=== PATIENT | female | born 1995 | race Caucasian/White ===

== ENCOUNTER 2024-02-21 17:09 | Inpatient (IN) ==
[2024-02-21] MEDS: NIFEdipine 10 MG CAP PO STA (17:33)
[2024-02-21] MEDS: LABETALOL HCL IV 5 MG/ML 20ML IV STA ×5 (17:51→23:22)
[2024-02-21 18:01] LABS: Hematocrit (blood only) 32.4 % (37.0-47.0); Hemoglobin 10.2 g/dl (12.0-16.0); Mean Corpuscular Hemoglobin 22.1 pg (25.0-34.0); Mean Corpuscular Hgb Conc 31.5 g/dL (32.0-36.0); Mean Corpuscular Volume 70.1 fL (80.0-100.0); Platelet Count 234 K/uL (130-400); RDW Coefficient of Variation 13.8 % (11.5-14.5); RDW Standard Deviation 34.2 fL (36.4-46.3); Red Blood Count 4.62 M/uL (4.20-5.40); White Blood Count 8.69 K/ul (4.8-10.8)
[2024-02-21 18:14] LABS: Alanine Aminotransferase 5 U/L (7-52); Albumin Globulin Ratio 1.2 (0.9-2); Albumin Level 3.2 gm/dl (3.4-5.0); Alkaline Phosphatase 125 U/L (34-104); Anion Gap 7 (3-11); Aspartate Aminotransferase 11 U/L (13-39); BUN Creatinine Ratio 13.2 (10-20); Bilirubin,Total 0.4 mg/dl (0.2-1.0); Blood Urea Nitrogen 7 mg/dl (6-23); Calcium 8.3 mg/dl (8.6-10.3); Carbon Dioxide 24 mmol/L (21-32); Chloride 104 mmol/L (98-107); Est GFR (African American) > 150.0 ml/min; Globulin 2.6 gm/dl (2.5-4.0); Glucose 81 mg/dl (70-99(Fasting)); Potassium 3.5 mmol/L (3.5-5.1); Sodium 135 mmol/L (136-145); Total Protein 5.8 gm/dl (6.0-8.3)
[2024-02-21 18:20] LABS: Creatinine Urine Random 128.7 mg/dl; Protein Creatinine Ratio Urine 0.3 (0-0.2); Total Protein Urine Random 34.1 mg/dl (0-11.9)
[2024-02-21] MEDS: MAGNESIUM SULFATE / WTR 40 GM/1,000 ML BAG IV SCH (18:26)
[2024-02-21] MEDS: MAG SULFATE 4GM BOLUS FROM BAG IV ONE (18:26)
[2024-02-21] MEDS: MAGNESIUM SULFATE 40GM / WTR 1,000 ML BAG IV ONE (18:36)
[2024-02-21] MEDS: LACTATED RINGER'S 1,000 ML IV SCH (18:37)
--- NOTE | 2024-02-21 20:56 | History & Physical Report ---
Date of Service February 21, 2024 Assessment & Plan (1) Preeclampsia: Plan: Preeclampsia diagnosis with severe range blood pressures and protein/creatinine ratio 0.3. Bloodwork normal. Gave 10mg PO procardia on arrival, followed by 20mg IV labetalol. Reviewed diagnosis and plans with patient - recommend admission, magnesium, and induction of labor. She is agreeable. Will plan for lazo bulb and pitocin. History of Present Illness Chief Complaint: elevated BP Primary Care Provider: NO PCP 28yo @ 37 10/30, was at office today for routine visit, elevated BPs at office. Was directed to L&D for further eval/workup. No symptoms - no headache, vision changes, RUQ pain. Allergies Allergy/AdvReac Type Severity Reaction Status Date / Time No Known Allergies Allergy Verified 02/21/24 15:27 Home Medications Medication Instructions Recorded Confirmed Type aspirin 81 mg chewable tablet 81 mg PO DAILY 11/07/23 02/21/24 History elderberry fruit PO 11/07/23 02/21/24 History 21-iron fu-folic acid 1 tab PO 11/07/23 02/21/24 History [ Complete] Patient History Medical History (Updated 02/21/24 @ 20:59 by Carine Sanders DO) History of PCOS Hypertension Varicella vaccination Surgical History (Updated 11/07/23 @ 13:28 by Sonya Shannon) S/P tonsillectomy and adenoidectomy Family History (Updated 11/07/23 @ 13:14 by Sonya Shannon) Aunt Breast cancer Grandmother (Maternal) Ovarian cancer Denies family history of Colorectal cancer Social History (Updated 11/07/23 @ 13:16 by Sonya Shannon) Smoking Status: Never smoker Do You Dip or Chew Tobacco: No; Hx Alcohol Use: No Hx Substance Use: No Preferred Language: Uzbek Supervisor Sewer Maintenance Required: No Beliefs That Will Affect Care: None marital status: Single marital status details: marko Unger (24) [phone] Current Living Situation: Significant Other Current Living Situation Comment: lives with fohortencia, 2 children, dog, cat-fob changing litter current occupational status: employed and student current occupation: [employer] & student Feels Safe at Home: Yes Safety Concerns: Feels Safe At This Time Assistive Devices: None Review of Systems All systems reviewed & are unremarkable except as noted in HPI & below Physical Exam Physical Exam: FHT Cat 1 [place] none SVE FT/th/high Constitutional: WD/WN, vitals as above Respiratory: normal respiratory effort, lungs clear to auscultation no respiratory distress Cardiovascular: Rate/Rhythm: regular rate and regular rhythm Gastrointestinal (Abdomen): Inspection/Auscultation: abdomen normal to inspection Percussion/Palpation: abdomen soft; abdomen nontender Gravid. No s/s chorio or abruption. Skin: no rashes, warm and dry Psychiatric: A+Ox3, euthymic affect Results & Data Vital Signs (Past 12 Hours) Vital Signs Temp Pulse Resp BP Pulse Ox 02/21/24 20:55 163/99 H 02/21/24 20:54 104 H 163/100 H 02/21/24 20:53 98 02/21/24 20:53 104 H 02/21/24 20:50 104 H 02/21/24 20:50 163/100 H 02/21/24 20:48 99 02/21/24 20:48 103 H 02/21/24 20:45 102 H 02/21/24 20:45 161/100 H 02/21/24 20:43 96 02/21/24 20:43 106 H 02/21/24 20:40 110 H 165/104 H 02/21/24 20:40 109 H 02/21/24 20:40 165/104 H 02/21/24 20:38 97 02/21/24 20:38 111 H 02/21/24 20:33 99 02/21/24 20:33 108 H 02/21/24 20:30 16 02/21/24 20:30 16 02/21/24 20:28 98 02/21/24 20:28 111 H 02/21/24 20:23 99 02/21/24 20:23 110 H 02/21/24 20:22 108 H 02/21/24 20:22 161/97 H 02/21/24 20:18 99 02/21/24 20:18 111 H 02/21/24 20:13 99 02/21/24 20:13 105 H 02/21/24 20:08 98 02/21/24 20:08 109 H 02/21/24 20:03 97 02/21/24 20:03 108 H 02/21/24 20:00 16 02/21/24 20:00 16 02/21/24 19:58 99 02/21/24 19:58 106 H 02/21/24 19:53 99 02/21/24 19:53 105 H 02/21/24 19:52 105 H 02/21/24 19:52 156/90 H 02/21/24 19:48 99 02/21/24 19:48 108 H 02/21/24 19:43 99 02/21/24 19:43 109 H 02/21/24 19:38 99 02/21/24 19:38 108 H 02/21/24 19:33 98 02/21/24 19:33 105 H 02/21/24 19:30 16 02/21/24 19:30 16 02/21/24 19:29 106 H 02/21/24 19:29 145/89 H 02/21/24 19:28 98 02/21/24 19:28 107 H 02/21/24 19:23 100 02/21/24 19:23 109 H 02/21/24 19:22 108 H 02/21/24 19:22 155/94 H 02/21/24 19:18 99 02/21/24 19:18 109 H 02/21/24 19:15 36.6 C 16 02/21/24 19:15 16 02/21/24 19:13 98 02/21/24 19:13 115 H 02/21/24 19:08 98 02/21/24 19:08 107 H 02/21/24 19:03 97 02/21/24 19:03 111 H 02/21/24 19:03 94 02/21/24 19:03 109 H 02/21/24 18:58 96 02/21/24 18:58 108 H 02/21/24 18:56 94 02/21/24 18:56 114 H 02/21/24 18:53 95 02/21/24 18:53 116 H 02/21/24 18:49 116 H 02/21/24 18:49 136/82 02/21/24 18:48 95 02/21/24 18:48 115 H 02/21/24 18:44 122 H 02/21/24 18:44 157/93 H 02/21/24 18:43 99 0430/24 18:43 127 H 02/21/24 18:39 116 H 02/21/24 18:39 142/79 H 02/21/24 18:38 97 02/21/24 18:38 117 H 02/21/24 18:34 120 H 02/21/24 18:34 147/82 H 02/21/24 18:33 98 02/21/24 18:33 122 H 02/21/24 18:29 125 H 02/21/24 18:29 163/92 H 02/21/24 18:28 98 02/21/24 18:28 131 H 02/21/24 18:24 122 H 02/21/24 18:24 162/76 H 02/21/24 18:23 96 02/21/24 18:23 119 H 02/21/24 18:19 121 H 02/21/24 18:19 145/90 H 02/21/24 18:18 97 02/21/24 18:18 120 H 02/21/24 18:14 118 H 02/21/24 18:14 144/88 H 02/21/24 18:13 97 02/21/24 18:13 118 H 02/21/24 18:10 117 H 02/21/24 18:10 139/89 02/21/24 18:08 97 02/21/24 18:08 119 H 02/21/24 18:06 37.0 C 22 02/21/24 18:04 112 H 157/94 H 02/21/24 18:03 115 H 98 02/21/24 17:59 111 H 170/97 H 02/21/24 17:51 114 H 203/123 H 02/21/24 17:49 114 H 203/123 H 02/21/24 17:45 109 H 198/119 H 02/21/24 17:38 114 H 215/131 H 02/21/24 17:28 104 H 189/125 H 02/21/24 17:17 102 H 189/116 H Coding Level of Care Code None Diagnoses Preeclampsia O14.90
[2024-02-21] MEDS: OXYTOCIN 30 UNITS/NSS 30 UNITS/500 ML BAG IV PRN (22:07)
[2024-02-21] MEDS: ACETAMINOPHEN 500 MG TAB PO PRN (22:27)
[2024-02-22] LABS: Alanine Aminotransferase 8 U/L (7-52); Albumin Globulin Ratio 1.2 (0.9-2); Albumin Level 3.1 gm/dl (3.4-5.0); Alkaline Phosphatase 121 U/L (34-104); Anion Gap 7 (3-11); Aspartate Aminotransferase 10 U/L (13-39); BUN Creatinine Ratio 11.1 (10-20); Bilirubin,Total 0.5 mg/dl (0.2-1.0); Blood Urea Nitrogen 5 mg/dl (6-23); Calcium 7.4 mg/dl (8.6-10.3); Carbon Dioxide 22 mmol/L (21-32); Chloride 103 mmol/L (98-107); Est GFR (African American) > 150.0 ml/min; Est GFR (Non-African American) 138.3 ml/min; Globulin 2.5 gm/dl (2.5-4.0); Glucose 98 mg/dl (70-99(Fasting)); Potassium 3.5 mmol/L (3.5-5.1); Sodium 132 mmol/L (136-145); Total Protein 5.6 gm/dl (6.0-8.3)
[2024-02-22 00:03] LABS: Hematocrit (blood only) 30.5 % (37.0-47.0); Hemoglobin 9.6 g/dl (12.0-16.0); Mean Corpuscular Hemoglobin 21.8 pg (25.0-34.0); Mean Corpuscular Hgb Conc 31.5 g/dL (32.0-36.0); Mean Corpuscular Volume 69.3 fL (80.0-100.0); Mean Platelet Volume 10.2 fL (9.4-12.4); Platelet Count 233 K/uL (130-400); RDW Coefficient of Variation 13.9 % (11.5-14.5); RDW Standard Deviation 34.2 fL (36.4-46.3); White Blood Count 10.35 K/ul (4.8-10.8)
[2024-02-22 00:34] LABS: Magnesium Therapeutic L&D Only 3.8 mg/dL (4.0-8.0)
[2024-02-22] MEDS: ONDANSETRON INJ 2 MG/ML 2 ML VIAL ONE (06:04)
[2024-02-22 06:07] LABS: Hematocrit (blood only) 33.3 % (37.0-47.0); Hemoglobin 10.6 g/dl (12.0-16.0); Mean Corpuscular Hemoglobin 22.1 pg (25.0-34.0); Mean Corpuscular Hgb Conc 31.8 g/dL (32.0-36.0); Mean Corpuscular Volume 69.4 fL (80.0-100.0); Platelet Count 224 K/uL (130-400); RDW Coefficient of Variation 13.8 % (11.5-14.5); White Blood Count 10.68 K/ul (4.8-10.8)
[2024-02-22] MEDS ORDERED: ONDANSETRON INJ 2 MG/ML 2 ML VIAL IV PRN (06:10)
[2024-02-22 06:24] LABS: Alanine Aminotransferase 8 U/L (7-52); Albumin Globulin Ratio 1.3 (0.9-2); Albumin Level 3.2 gm/dl (3.4-5.0); Alkaline Phosphatase 122 U/L (34-104); Anion Gap 9 (3-11); Aspartate Aminotransferase 12 U/L (13-39); Bilirubin,Total 0.6 mg/dl (0.2-1.0); Blood Urea Nitrogen 4 mg/dl (6-23); Calcium 7.2 mg/dl (8.6-10.3); Carbon Dioxide 21 mmol/L (21-32); Chloride 102 mmol/L (98-107); Creatinine Clr Calc Pharmacy 228.4 ml/min; Est GFR (African American) > 150.0 ml/min; Est GFR (Non-African American) 143.8 ml/min; Globulin 2.5 gm/dl (2.5-4.0); Glucose 92 mg/dl (70-99(Fasting)); Potassium 3.6 mmol/L (3.5-5.1); Sodium 132 mmol/L (136-145); Total Protein 5.7 gm/dl (6.0-8.3)
[2024-02-22] MEDS: LABETALOL HCL IV 5 MG/ML 20ML IV ONE (06:24)
[2024-02-22] MEDS: LABETALOL HCL IV 5 MG/ML 20ML IV STA (06:39)
[2024-02-22 06:54] LABS: Magnesium Therapeutic L&D Only 4.5 mg/dL (4.0-8.0)
--- NOTE | 2024-02-22 08:09 | Labor Progress Brief Note ---
Date of Service February 22, 2024 Subjective [place] balloon fell out. FHT Cat 1 [place] Q 3-5 SVE 4/50/-2 AROM performed, copious clear fluid. Continue pitocin - at 20 right now. Desires epidural. Assessment & Plan Admission and Anticipated Discharge Date Admission Date: February 22, 2024 Results & Data Vital Signs (Past 12 Hours) Vital Signs Temp Pulse Resp BP Pulse Ox 02/22/24 08:03 107 H 100 02/22/24 07:58 92 H 100 02/22/24 07:53 92 H 98 02/22/24 07:48 93 H 98 02/22/24 07:45 36.7 C 16 02/22/24 07:43 97 H 97 02/22/24 07:40 98 H 137/79 02/22/24 07:38 100 H 96 02/22/24 07:33 98 H 97 02/22/24 07:28 100 H 97 02/22/24 07:23 102 H 98 02/22/24 07:18 96 H 96 02/22/24 07:13 97 H 99 02/22/24 07:09 93 H 155/86 H 02/22/24 07:08 98 02/22/24 07:08 97 H 02/22/24 07:08 94 H 164/87 H 02/22/24 07:03 98 02/22/24 07:03 100 H 02/22/24 07:03 95 H 157/83 H 02/22/24 06:59 88 147/83 H 02/22/24 06:58 95 H 94 02/22/24 06:55 90 149/87 H 02/22/24 06:53 92 H 99 02/22/24 06:48 102 H 142/88 H 98 02/22/24 06:43 92 H 142/87 H 96 02/22/24 06:38 93 H 151/84 H 02/22/24 06:38 98 02/22/24 06:38 93 H 02/22/24 06:38 96 H 156/92 H 02/22/24 06:33 93 H 151/84 H 97 02/22/24 06:30 16 02/22/24 06:30 16 02/22/24 06:28 94 H 98 02/22/24 06:23 100 H 98 02/22/24 06:18 95 H 96 02/22/24 06:16 96 H 160/87 H 02/22/24 06:13 100 H 95 02/22/24 06:10 98 H 164/101 H 02/22/24 06:08 100 H 99 02/22/24 06:03 101 H 99 02/22/24 06:00 18 02/22/24 06:00 18 02/22/24 06:00 18 02/22/24 06:00 18 02/22/24 05:58 101 H 99 02/22/24 05:53 107 H 98 02/22/24 05:48 103 H 100 02/22/24 05:43 92 H 95 02/22/24 05:39 92 H 142/85 H 02/22/24 05:38 92 H 95 02/22/24 05:33 95 H 95 02/22/24 05:30 18 02/22/24 05:30 36.5 C 18 02/22/24 05:28 94 H 96 02/22/24 05:23 91 H 95 02/22/24 05:18 93 H 95 02/22/24 05:13 92 H 95 02/22/24 05:10 95 H 155/87 H 02/22/24 05:08 94 H 97 02/22/24 05:03 96 H 98 02/22/24 05:00 18 02/22/24 05:00 16 02/22/24 05:00 16 02/22/24 05:00 16 02/22/24 05:00 16 02/22/24 04:58 95 H 97 02/22/24 04:53 95 H 97 02/22/24 04:48 102 H 97 02/22/24 04:44 93 H 145/78 H 02/22/24 04:43 98 H 97 02/22/24 04:39 105 H 178/92 H 02/22/24 04:38 102 H 98 02/22/24 04:33 107 H 99 02/22/24 04:28 108 H 99 02/22/24 04:23 102 H 100 02/22/24 04:18 99 02/22/24 04:18 101 H 02/22/24 04:18 100 H 151/87 H 02/22/24 04:16 102 H 179/106 H 02/22/24 04:13 93 H 98 02/22/24 04:09 88 165/85 H 02/22/24 04:08 89 98 02/22/24 04:03 90 96 02/22/24 04:00 18 02/22/24 03:58 93 H 98 02/22/24 03:53 91 H 96 02/22/24 03:48 96 H 95 02/22/24 03:43 90 94 02/22/24 03:39 86 159/80 H 02/22/24 03:38 89 98 02/22/24 03:33 96 H 95 02/22/24 03:30 16 02/22/24 03:30 16 02/22/24 03:29 88 89 L 02/22/24 03:28 95 H 95 02/22/24 03:23 91 H 95 02/22/24 03:18 91 H 99 02/22/24 03:13 90 96 02/22/24 03:09 100 H 149/84 H 02/22/24 03:08 95 H 95 02/22/24 03:03 95 H 94 02/22/24 03:00 18 02/22/24 03:00 18 02/22/24 03:00 18 02/22/24 02:58 92 H 96 02/22/24 02:53 93 H 96 02/22/24 02:48 91 H 96 02/22/24 02:43 94 H 95 02/22/24 02:38 96 H 98 02/22/24 02:37 93 H 156/88 H 02/22/24 02:33 98 H 99 02/22/24 02:30 18 02/22/24 02:30 18 02/22/24 02:29 102 H 163/90 H 02/22/24 02:28 98 H 98 02/22/24 02:23 96 H 99 02/22/24 02:18 98 H 96 02/22/24 02:13 96 H 97 02/22/24 02:08 98 H 98 02/22/24 02:03 99 H 99 02/22/24 02:00 18 02/22/24 02:00 18 02/22/24 02:00 18 02/22/24 02:00 18 02/22/24 01:59 98 H 153/79 H 02/22/24 01:58 96 H 97 02/22/24 01:53 92 H 94 05/01/24 01:48 92 H 94 02/22/24 01:43 93 H 96 02/22/24 01:38 93 H 99 02/22/24 01:33 97 H 99 02/22/24 01:30 18 02/22/24 01:30 18 02/22/24 01:28 105 H 155/93 H 99 02/22/24 01:23 97 H 94 02/22/24 01:18 95 H 95 02/22/24 01:13 99 H 99 02/22/24 01:08 94 H 100 02/22/24 01:03 101 H 94 02/22/24 01:00 18 02/22/24 01:00 18 02/22/24 01:00 02/22/24 00:58 97 02/22/24 00:58 89 02/22/24 00:58 88 147/80 H 02/22/24 00:55 92 H 92 02/22/24 00:53 93 H 93 02/22/24 00:48 94 H 99 02/22/24 00:46 92 H 91 02/22/24 00:43 93 H 94 02/22/24 00:38 97 H 96 02/22/24 00:33 95 H 96 02/22/24 00:30 18 02/22/24 00:30 18 02/22/24 00:29 90 144/85 H 02/22/24 00:28 94 H 98 02/22/24 00:23 98 H 99 02/22/24 00:18 104 H 94 02/22/24 00:13 94 H 95 02/22/24 00:08 94 H 95 02/22/24 00:03 93 H 96 02/22/24 00:00 02/22/24 00:00 16 02/21/24 23:58 97 02/21/24 23:58 94 H 02/21/24 23:56 98 H 02/21/24 23:56 149/87 H 02/21/24 23:53 96 02/21/24 23:53 93 H 02/21/24 23:52 92 02/21/24 23:52 99 H 02/21/24 23:48 97 02/21/24 23:48 100 H 02/21/24 23:48 156/90 H 02/21/24 23:43 98 02/21/24 23:43 90 02/21/24 23:39 94 H 02/21/24 23:39 138/84 02/21/24 23:38 98 02/21/24 23:38 93 H 02/21/24 23:37 93 H 149/87 H 02/21/24 23:33 97 02/21/24 23:33 101 H 02/21/24 23:30 16 02/21/24 23:30 16 02/21/24 23:28 98 02/21/24 23:28 97 H 02/21/24 23:27 99 H 02/21/24 23:27 153/91 H 02/21/24 23:23 98 02/21/24 23:23 99 H 02/21/24 23:22 95 H 164/103 H 02/21/24 23:22 96 H 02/21/24 23:22 161/97 H 02/21/24 23:18 96 02/21/24 23:18 95 H 02/21/24 23:17 100 H 02/21/24 23:17 164/103 H 02/21/24 23:13 97 02/21/24 23:13 99 H 02/21/24 23:08 96 02/21/24 23:08 102 H 02/21/24 23:08 161/98 H 02/21/24 23:03 98 02/21/24 23:03 93 H 02/21/24 23:00 16 02/21/24 23:00 16 02/21/24 23:00 36.7 C 16 02/21/24 22:58 96 02/21/24 22:58 93 H 02/21/24 22:53 96 02/21/24 22:53 97 H 02/21/24 22:48 99 02/21/24 22:48 95 H 02/21/24 22:43 96 02/21/24 22:43 95 H 02/21/24 22:38 96 02/21/24 22:38 102 H 02/21/24 22:38 158/95 H 02/21/24 22:33 99 02/21/24 22:33 98 H 02/21/24 22:30 16 02/21/24 22:30 16 02/21/24 22:28 98 02/21/24 22:28 102 H 02/21/24 22:23 98 02/21/24 22:23 99 H 02/21/24 22:18 99 02/21/24 22:18 102 H 02/21/24 22:13 99 02/21/24 22:13 107 H 02/21/24 22:08 99 02/21/24 22:08 101 H 02/21/24 22:08 155/93 H 02/21/24 22:03 97 02/21/24 22:03 99 H 02/21/24 22:00 16 02/21/24 22:00 16 02/21/24 21:58 99 02/21/24 21:58 99 H 02/21/24 21:53 98 02/21/24 21:53 101 H 02/21/24 21:48 97 02/21/24 21:48 96 H 02/21/24 21:43 98 02/21/24 21:43 98 H 02/21/24 21:38 98 02/21/24 21:38 99 H 02/21/24 21:35 99 H 02/21/24 21:35 142/91 H 02/21/24 21:33 98 02/21/24 21:33 99 H 02/21/24 21:31 96 H 02/21/24 21:31 144/92 H 02/21/24 21:30 16 02/21/24 21:30 16 02/21/24 21:28 97 02/21/24 21:28 101 H 02/21/24 21:25 97 H 02/21/24 21:25 143/92 H 02/21/24 21:23 99 02/21/24 21:23 101 H 02/21/24 21:20 99 H 02/21/24 21:20 139/83 02/21/24 21:18 97 02/21/24 21:18 95 H 02/21/24 21:15 94 02/21/24 21:15 97 H 02/21/24 21:15 139/87 02/21/24 21:14 99 H 155/93 H 02/21/24 21:13 98 02/21/24 21:13 83 02/21/24 21:10 102 H 02/21/24 21:10 158/93 H 02/21/24 21:08 97 02/21/24 21:08 104 H 02/21/24 21:05 100 H 02/21/24 21:05 147/85 H 02/21/24 21:03 98 02/21/24 21:03 105 H 02/21/24 21:02 16 02/21/24 21:01 107 H 02/21/24 21:01 150/90 H 02/21/24 21:00 16 02/21/24 21:00 16 02/21/24 21:00 94 02/21/24 21:00 106 H 02/21/24 20:59 104 H 163/99 H 02/21/24 20:58 96 02/21/24 20:58 103 H 02/21/24 20:55 104 H 02/21/24 20:55 163/99 H 02/21/24 20:54 104 H 163/100 H 02/21/24 20:53 98 02/21/24 20:53 104 H 02/21/24 20:50 104 H 02/21/24 20:50 163/100 H 02/21/24 20:48 99 02/21/24 20:48 103 H 02/21/24 20:45 102 H 02/21/24 20:45 161/100 H 02/21/24 20:43 96 02/21/24 20:43 106 H 02/21/24 20:40 110 H 165/104 H 02/21/24 20:40 109 H 02/21/24 20:40 165/104 H 02/21/24 20:38 97 02/21/24 20:38 111 H 02/21/24 20:33 99 02/21/24 20:33 108 H 02/21/24 20:30 16 02/21/24 20:30 16 02/21/24 20:28 98 02/21/24 20:28 111 H 02/21/24 20:23 99 02/21/24 20:23 110 H 02/21/24 20:22 108 H 02/21/24 20:22 161/97 H 02/21/24 20:18 99 02/21/24 20:18 111 H 02/21/24 20:13 99 02/21/24 20:13 105 H 02/21/24 20:08 98 02/21/24 20:08 109 H Coding Level of Care Code None
[2024-02-22] MEDS ORDERED: fentaNYL citrate PF 100 MCG/2 ML VIAL EPI PRN (08:21)
[2024-02-22] MEDS ORDERED: LIDOCAINE 2% MPF LOCAL 5 ML VIAL EPI PRN (08:21)
[2024-02-22] MEDS ORDERED: BUPIVACAINE 0.25% PF 30 ML VIAL EPI PRN (08:21)
[2024-02-22] MEDS ORDERED: SODIUM CHLORIDE 0.9% PF INJ 10 ML VIAL EPI PRN (08:21)
[2024-02-22] MEDS ORDERED: NALOXONE HCL 0.4 MG/1 ML VIAL/CARP IV PRN ×2 (08:21→22:40)
[2024-02-22] MEDS ORDERED: ePHEDrine sulfate 50 MG/ML AMP IV PRN ×2 (08:21→22:40)
[2024-02-22] MEDS ORDERED: NALOXONE HCL 1 MG in SODIUM CHLORIDE 0.9% 1,000 ML IV PRN ×2 (08:21→22:40)
[2024-02-22] MEDS ORDERED: NALBUPHINE HCL 5 MG in SYRINGE 0 ML IV PRN ×2 (08:21→22:40)
[2024-02-22] MEDS ORDERED: ROPIVACAINE 0.5% PF 5 MG/ML 20 ML VIAL EPI PRN (08:21)
[2024-02-22] MEDS ORDERED: diphenhydrAMINE 50 MG/ML VIAL IV PRN ×2 (08:21→22:40)
--- NOTE | 2024-02-22 08:21 | Anesthesiology Consultation ---
Date of Service February 22, 2024 Assessment & Plan Chart Review Chart Review: Acceptable Risk for Labor Epidural Consults Requested none History Height/Weight Height: 5 ft Weight: 101.437 kg Allergies Allergy/AdvReac Type Severity Reaction Status Date / Time No Known Allergies Allergy Verified 02/21/24 15:27 Medications Home Medications Medication Instructions Recorded Confirmed Last Taken aspirin 81 mg chewable tablet 81 mg PO DAILY 11/07/23 02/21/24 Unknown elderberry fruit PO 11/07/23 02/21/24 Unknown 21-iron fu-folic acid 1 tab PO 11/07/23 02/21/24 02/20/24 [ Complete] Active Medications Generic Name Dose Route Start Last Admin Trade Name Freq PRN Reason Stop Dose Admin Acetaminophen 1,000 mg 02/21/24 21:45 02/22/24 05:55 Acetaminophen 500 Mg Tab PO 03/22/24 21:44 1,000 mg Q8H PRN Administration Pain Magnesium Sulfate 40 gm in 1,000 mls @ 50 mls/hr 02/21/24 18:30 02/22/24 07:05 Magnesium Sulfate / Wtr IV 03/22/24 18:29 50 mls/hr .Q20H [place] Infusion Lactated Ringer's 1,000 mls @ 75 mls/hr 02/21/24 18:30 02/22/24 07:05 Lr IV 03/22/24 18:29 75 mls/hr .[id number] [place] Infusion Oxytocin 30 units in 500 mls @ 20 mls/hr 02/21/24 18:23 02/22/24 07:37 Pitocin 30 Units/Nss IV 02/23/24 18:22 1.2 units/hr .Q24H PRN 20 mls/hr Labor Induction/Augmentation Titration Protocol 1.2 UNITS/HR Past Medical History Medical History (Updated 02/21/24 @ 20:59 by Carine Sanders DO) History of PCOS Hypertension Varicella vaccination Past Family History Family History (Updated 11/07/23 @ 13:14 by Sonya Shannon) Aunt Breast cancer Grandmother (Maternal) Ovarian cancer Denies family history of Colorectal cancer Past Surgical History Surgical History (Updated 11/07/23 @ 13:28 by Sonya Shannon) S/P tonsillectomy and adenoidectomy Social History Smoking Status: Never smoker Do You Dip or Chew Tobacco: No Hx Alcohol Use: No Hx Substance Use: No Physical Exam Vital Signs Last Vital Signs Temp 36.7 C 02/22/24 07:45 Pulse 98 H 02/22/24 08:18 Resp 16 02/22/24 07:45 BP 153/87 H 02/22/24 08:11 Pulse Ox 99 02/22/24 08:18 Constitutional WD/WN, vitals as above Respiratory normal respiratory effort, lungs clear to auscultation no respiratory distress Cardiovascular Rate/Rhythm: regular rate and regular rhythm Gastrointestinal (Abdomen) Inspection/Auscultation: abdomen normal to inspection Percussion/Palpation: abdomen soft; abdomen nontender Skin no rashes, warm and dry Psychiatric A+Ox3, euthymic affect Testing Laboratory Results 02/22/24 05:52 02/22/24 05:52 Blood Type B Positive 02/21/24 17:42 Antibody Screen NEGATIVE 02/21/24 17:42
[2024-02-22] MEDS: LIDOCAINE 2%/EPINEPHRINE 1:200,000 20 ML PF ONE (08:38)
[2024-02-22] MEDS: fentANYL 2 MCG/ML BUPIVacaine 0.125%-NSS 100ML BAG EPI PRN (08:39)
--- NOTE | 2024-02-22 08:48 | Communication Note ---
Date of Service: February 22, 2024 pt with anesth and received epidural. pit at 20 toco not able to read fhts categ 1 will c/w pit, monitor bps. fhts categ 1. pt aware i am taking over care.
--- NOTE | 2024-02-22 12:23 | Labor Progress Brief Note ---
Date of Service February 22, 2024 Subjective Review of Systems comfortable with epidural. no cp or sob, no lewis. Assessment & Plan (1) Preeclampsia: (2) Encounter for induction of labor: Plan given pit at 30 and no significant progress, will plan to 1/2 pit for 30min at 15 and then increase per orders. fhts categ 1. Admission and Anticipated Discharge Date Admission Date: February 22, 2024 Physical Exam Constitutional: WD/WN, vitals as above Genitourinary: Manual OB Exam: + cervical dilation (5), + cervical effacement 80% and + station -2 OB Exam Monitor Tracing: + external FHT monitor used, + external uterine monitor used (q2 pit at 30), + category I and + normal FHT variability no pressure of cephalic on cx. Results & Data Vital Signs (Past 12 Hours) Vital Signs Temp Pulse Resp BP Pulse Ox 02/22/24 12:18 90 98 02/22/24 12:13 92 H 99 02/22/24 12:09 92 H 116/72 02/22/24 12:08 89 97 02/22/24 12:03 92 H 99 02/22/24 12:00 16 02/22/24 12:00 98.1 F 02/22/24 11:59 86 115/69 02/22/24 11:58 86 97 02/22/24 11:53 89 98 02/22/24 11:49 85 114/72 02/22/24 11:48 84 99 02/22/24 11:43 89 97 02/22/24 11:38 89 98/56 L 99 02/22/24 11:33 85 94 02/22/24 11:28 96 02/22/24 11:28 86 02/22/24 11:28 80 103/57 L 02/22/24 11:23 94 02/22/24 11:23 80 02/22/24 11:23 83 92 02/22/24 11:20 79 100/59 L 02/22/24 11:18 81 93 02/22/24 11:14 83 92 02/22/24 11:13 78 92 02/22/24 11:08 82 107/58 L 96 02/22/24 11:03 85 97 02/22/24 11:00 16 02/22/24 11:00 73 104/58 L 02/22/24 10:58 96 05/01/24 10:58 57 L 02/22/24 10:58 64 99/54 L 02/22/24 10:56 56 L 92/53 L 02/22/24 10:53 95 H 98 02/22/24 10:48 98 H 98 02/22/24 10:43 100 H 95 02/22/24 10:38 95 H 99 02/22/24 10:33 93 H 99 02/22/24 10:32 96 H 141/83 H 02/22/24 10:28 94 H 96 02/22/24 10:23 96 H 98 02/22/24 10:18 94 H 96 02/22/24 10:13 97 H 96 02/22/24 10:08 91 H 99 02/22/24 10:03 96 H 97 02/22/24 10:02 95 H 142/85 H 02/22/24 10:00 16 02/22/24 10:00 97.9 F 02/22/24 09:58 92 H 94 02/22/24 09:53 93 H 94 02/22/24 09:51 90 120/72 02/22/24 09:48 93 H 94 02/22/24 09:43 94 H 93 02/22/24 09:41 90 135/77 02/22/24 09:38 94 H 96 02/22/24 09:33 92 H 94 02/22/24 09:31 93 H 139/79 02/22/24 09:28 99 H 97 02/22/24 09:23 92 H 96 02/22/24 09:18 94 H 98 02/22/24 09:16 97 H 139/75 02/22/24 09:13 99 H 95 02/22/24 09:11 93 H 135/78 02/22/24 09:08 90 95 02/22/24 09:06 95 H 128/77 02/22/24 09:03 95 H 95 02/22/24 09:01 94 H 138/85 02/22/24 08:58 97 H 98 02/22/24 08:57 99 H 144/88 H 02/22/24 08:53 98 H 98 02/22/24 08:51 99 H 154/86 H 02/22/24 08:48 98 H 99 02/22/24 08:45 104 H 152/87 H 02/22/24 08:43 97 02/22/24 08:43 101 H 02/22/24 08:43 99 H 153/87 H 02/22/24 08:41 101 H 153/88 H 02/22/24 08:39 100 H 169/97 H 02/22/24 08:38 98 02/22/24 08:38 105 H 02/22/24 08:38 100 H 179/101 H 02/22/24 08:33 103 H 99 02/22/24 08:28 102 H 100 02/22/24 08:23 103 H 100 02/22/24 08:18 98 H 99 02/22/24 08:13 97 H 99 02/22/24 08:11 97 H 153/87 H 02/22/24 08:08 103 H 100 02/22/24 08:03 107 H 100 02/22/24 07:58 92 H 100 02/22/24 07:53 92 H 98 02/22/24 07:48 93 H 98 02/22/24 07:45 98.1 F 16 02/22/24 07:43 97 H 97 02/22/24 07:40 98 H 137/79 02/22/24 07:38 100 H 96 02/22/24 07:33 98 H 97 02/22/24 07:28 100 H 97 02/22/24 07:23 102 H 98 02/22/24 07:18 96 H 96 02/22/24 07:13 97 H 99 02/22/24 07:09 93 H 155/86 H 02/22/24 07:08 98 02/22/24 07:08 97 H 02/22/24 07:08 94 H 164/87 H 02/22/24 07:03 98 02/22/24 07:03 100 H 02/22/24 07:03 95 H 157/83 H 02/22/24 07:00 16 02/22/24 06:59 88 147/83 H 02/22/24 06:58 95 H 94 02/22/24 06:55 90 149/87 H 02/22/24 06:53 92 H 99 02/22/24 06:48 102 H 142/88 H 98 02/22/24 06:43 92 H 142/87 H 96 02/22/24 06:38 93 H 151/84 H 02/22/24 06:38 98 02/22/24 06:38 93 H 05 06:38 96 H 156/92 H 02/22/24 06:33 93 H 151/84 H 97 02/22/24 06:30 16 02/22/24 06:30 16 02/22/24 06:28 94 H 98 02/22/24 06:23 100 H 98 02/22/24 06:18 95 H 96 02/22/24 06:16 96 H 160/87 H 02/22/24 06:13 100 H 95 02/22/24 06:10 98 H 164/101 H 02/22/24 06:08 100 H 99 02/22/24 06:03 101 H 99 02/22/24 06:00 18 02/22/24 06:00 18 02/22/24 06:00 18 02/22/24 06:00 18 02/22/24 05:58 101 H 99 02/22/24 05:53 107 H 98 02/22/24 05:48 103 H 100 02/22/24 05:43 92 H 95 02/22/24 05:39 92 H 142/85 H 02/22/24 05:38 92 H 95 02/22/24 05:33 95 H 95 02/22/24 05:30 18 02/22/24 05:30 97.7 F 18 02/22/24 05:28 94 H 96 02/22/24 05:23 91 H 95 02/22/24 05:18 93 H 95 02/22/24 05:13 92 H 95 02/22/24 05:10 95 H 155/87 H 02/22/24 05:08 94 H 97 02/22/24 05:03 96 H 98 02/22/24 05:00 18 02/22/24 05:00 16 02/22/24 05:00 16 02/22/24 05:00 16 02/22/24 05:00 16 02/22/24 04:58 95 H 97 02/22/24 04:53 95 H 97 02/22/24 04:48 102 H 97 02/22/24 04:44 93 H 145/78 H 02/22/24 04:43 98 H 97 02/22/24 04:39 105 H 178/92 H 05/01/24 04:38 102 H 98 02/22/24 04:33 107 H 99 02/22/24 04:28 108 H 99 02/22/24 04:23 102 H 100 02/22/24 04:18 99 02/22/24 04:18 101 H 02/22/24 04:18 100 H 151/87 H 02/22/24 04:16 102 H 179/106 H 02/22/24 04:13 93 H 98 02/22/24 04:09 88 165/85 H 02/22/24 04:08 89 98 02/22/24 04:03 90 96 02/22/24 04:00 18 02/22/24 03:58 93 H 98 02/22/24 03:53 91 H 96 02/22/24 03:48 96 H 95 02/22/24 03:43 90 94 02/22/24 03:39 86 159/80 H 02/22/24 03:38 89 98 02/22/24 03:33 96 H 95 02/22/24 03:30 16 02/22/24 03:30 16 02/22/24 03:29 88 89 L 02/22/24 03:28 95 H 95 02/22/24 03:23 91 H 95 02/22/24 03:18 91 H 99 02/22/24 03:13 90 96 02/22/24 03:09 100 H 149/84 H 02/22/24 03:08 95 H 95 02/22/24 03:03 95 H 94 02/22/24 03:00 18 02/22/24 03:00 18 02/22/24 03:00 18 02/22/24 02:58 92 H 96 02/22/24 02:53 93 H 96 02/22/24 02:48 91 H 96 02/22/24 02:43 94 H 95 02/22/24 02:38 96 H 98 02/22/24 02:37 93 H 156/88 H 02/22/24 02:33 98 H 99 02/22/24 02:30 18 02/22/24 02:30 18 02/22/24 02:29 102 H 163/90 H 02/22/24 02:28 98 H 98 02/22/24 02:23 96 H 99 02/22/24 02:18 98 H 96 05/01/24 02:13 96 H 97 02/22/24 02:08 98 H 98 02/22/24 02:03 99 H 99 02/22/24 02:00 02/22/24 02:00 02/22/24 02:00 02/22/24 02:00 02/22/24 01:59 98 H 153/79 H 02/22/24 01:58 96 H 97 02/22/24 01:53 92 H 94 02/22/24 01:48 92 H 94 02/22/24 01:43 93 H 96 02/22/24 01:38 93 H 99 02/22/24 01:33 97 H 99 02/22/24 01:30 18 02/22/24 01:30 02/22/24 01:28 105 H 155/93 H 99 02/22/24 01:23 97 H 94 02/22/24 01:18 95 H 95 02/22/24 01:13 99 H 99 02/22/24 01:08 94 H 100 02/22/24 01:03 101 H 94 02/22/24 01:00 02/22/24 01:00 02/22/24 01:00 02/22/24 00:58 97 02/22/24 00:58 89 02/22/24 00:58 88 147/80 H 02/22/24 00:55 92 H 92 02/22/24 00:53 93 H 93 02/22/24 00:48 94 H 99 02/22/24 00:46 92 H 91 02/22/24 00:43 93 H 94 02/22/24 00:38 97 H 96 02/22/24 00:33 95 H 96 02/22/24 00:30 18 02/22/24 00:30 18 02/22/24 00:29 90 144/85 H 02/22/24 00:28 94 H 98 02/22/24 00:23 98 H 99 Coding Level of Care Code None Diagnoses Preeclampsia O14.90 Encounter for induction of labor Z34.90
--- NOTE | 2024-02-22 15:02 | Labor Progress Brief Note ---
Date of Service February 22, 2024 Subjective pt feeling pressure Assessment & Plan (1) Encounter for induction of labor: (2) Preeclampsia: Plan Good cx change. c/w pit and mag. Urine output reviewed. bps good. Admission and Anticipated Discharge Date Admission Date: February 22, 2024 Physical Exam Constitutional: WD/WN, vitals as above Genitourinary: Manual OB Exam: + cervical dilation (8-9 cm), + cervical effacement 100% and + station + 1 OB Exam Monitor Tracing: + external FHT monitor used, + external uterine monitor used (q2), + category I and + normal FHT variability Results & Data Vital Signs (Past 12 Hours) Vital Signs Temp Pulse Resp BP Pulse Ox 02/22/24 14:58 14 02/22/24 14:58 99 H 99 02/22/24 14:56 99 H 131/73 02/22/24 14:53 107 H 97 02/22/24 14:48 100 H 98 02/22/24 14:45 100 H 134/76 02/22/24 14:43 112 H 97 02/22/24 14:38 101 H 99 02/22/24 14:33 104 H 95 02/22/24 14:28 99 H 97 02/22/24 14:26 97 H 132/78 02/22/24 14:23 97 H 98 02/22/24 14:18 97 H 95 02/22/24 14:13 95 H 95 02/22/24 14:08 97 H 96 02/22/24 14:05 97.7 F 14 02/22/24 14:03 95 H 95 02/22/24 14:00 16 02/22/24 14:00 14 02/22/24 13:58 97 H 95 02/22/24 13:56 96 H 136/72 02/22/24 13:53 90 98 02/22/24 13:48 98 H 96 02/22/24 13:44 96 H 138/78 02/22/24 13:43 103 H 99 02/22/24 13:38 94 H 95 02/22/24 13:33 97 H 98 02/22/24 13:28 100 H 140/81 100 02/22/24 13:23 93 H 100 02/22/24 13:18 93 H 100 02/22/24 13:13 94 H 134/74 98 02/22/24 13:08 107 H 93 02/22/24 13:03 93 H 99 02/22/24 13:00 17 02/22/24 12:58 90 135/73 98 02/22/24 12:53 89 100 02/22/24 12:48 93 H 96 02/22/24 12:43 90 137/76 98 02/22/24 12:38 91 H 100 02/22/24 12:33 90 99 02/22/24 12:28 90 125/77 98 02/22/24 12:23 87 99 02/22/24 12:18 90 98 02/22/24 12:13 92 H 99 02/22/24 12:09 92 H 116/72 02/22/24 12:08 89 97 02/22/24 12:03 92 H 99 02/22/24 12:00 16 02/22/24 12:00 98.1 F 02/22/24 11:59 86 115/69 02/22/24 11:58 86 97 02/22/24 11:53 89 98 02/22/24 11:49 85 114/72 02/22/24 11:48 84 99 02/22/24 11:43 89 97 02/22/24 11:38 89 98/56 L 99 02/22/24 11:33 85 94 02/22/24 11:28 96 02/22/24 11:28 86 02/22/24 11:28 80 103/57 L 02/22/24 11:23 94 02/22/24 11:23 80 02/22/24 11:23 83 92 02/22/24 11:20 79 100/59 L 02/22/24 11:18 81 93 02/22/24 11:14 83 92 02/22/24 11:13 78 92 02/22/24 11:08 82 107/58 L 96 02/22/24 11:03 85 97 02/22/24 11:00 16 02/22/24 11:00 73 104/58 L 02/22/24 10:58 96 02/22/24 10:58 57 L 02/22/24 10:58 64 99/54 L 02/22/24 10:56 56 L 92/53 L 02/22/24 10:53 95 H 98 02/22/24 10:48 98 H 98 02/22/24 10:43 100 H 95 02/22/24 10:38 95 H 99 02/22/24 10:33 93 H 99 02/22/24 10:32 96 H 141/83 H 02/22/24 10:28 94 H 96 02/22/24 10:23 96 H 98 02/22/24 10:18 94 H 96 02/22/24 10:13 97 H 96 02/22/24 10:08 91 H 99 02/22/24 10:03 96 H 97 02/22/24 10:02 95 H 142/85 H 02/22/24 10:00 16 02/22/24 10:00 97.9 F 02/22/24 09:58 92 H 94 02/22/24 09:53 93 H 94 02/22/24 09:51 90 120/72 02/22/24 09:48 93 H 94 02/22/24 09:43 94 H 93 02/22/24 09:41 90 135/77 02/22/24 09:38 94 H 96 02/22/24 09:33 92 H 94 02/22/24 09:31 93 H 139/79 02/22/24 09:28 99 H 97 02/22/24 09:23 92 H 96 02/22/24 09:18 94 H 98 02/22/24 09:16 97 H 139/75 02/22/24 09:13 99 H 95 02/22/24 09:11 93 H 135/78 02/22/24 09:08 90 95 02/22/24 09:06 95 H 128/77 02/22/24 09:03 95 H 95 02/22/24 09:01 94 H 138/85 02/22/24 08:58 97 H 98 02/22/24 08:57 99 H 144/88 H 02/22/24 08:53 98 H 98 02/22/24 08:51 99 H 154/86 H 02/22/24 08:48 98 H 99 02/22/24 08:45 104 H 152/87 H 02/22/24 08:43 97 02/22/24 08:43 101 H 02/22/24 08:43 99 H 153/87 H 02/22/24 08:41 101 H 153/88 H 02/22/24 08:39 100 H 169/97 H 02/22/24 08:38 98 02/22/24 08:38 105 H 02/22/24 08:38 100 H 179/101 H 02/22/24 08:33 103 H 99 02/22/24 08:28 102 H 100 02/22/24 08:23 103 H 100 02/22/24 08:18 98 H 99 02/22/24 08:13 97 H 99 02/22/24 08:11 97 H 153/87 H 02/22/24 08:08 103 H 100 02/22/24 08:03 107 H 100 02/22/24 07:58 92 H 100 02/22/24 07:53 92 H 98 02/22/24 07:48 93 H 98 02/22/24 07:45 98.1 F 16 02/22/24 07:43 97 H 97 02/22/24 07:40 98 H 137/79 02/22/24 07:38 100 H 96 02/22/24 07:33 98 H 97 02/22/24 07:28 100 H 97 02/22/24 07:23 102 H 98 02/22/24 07:18 96 H 96 02/22/24 07:13 97 H 99 02/22/24 07:09 93 H 155/86 H 02/22/24 07:08 98 02/22/24 07:08 97 H 02/22/24 07:08 94 H 164/87 H 02/22/24 07:03 98 02/22/24 07:03 100 H 02/22/24 07:03 95 H 157/83 H 02/22/24 07:00 16 02/22/24 06:59 88 147/83 H 02/22/24 06:58 95 H 94 02/22/24 06:55 90 149/87 H 02/22/24 06:53 92 H 99 02/22/24 06:48 102 H 142/88 H 98 02/22/24 06:43 92 H 142/87 H 96 02/22/24 06:38 93 H 151/84 H 02/22/24 06:38 98 02/22/24 06:38 93 H 02/22/24 06:38 96 H 156/92 H 02/22/24 06:33 93 H 151/84 H 97 02/22/24 06:30 16 02/22/24 06:30 16 02/22/24 06:28 94 H 98 02/22/24 06:23 100 H 98 02/22/24 06:18 95 H 96 02/22/24 06:16 96 H 160/87 H 02/22/24 06:13 100 H 95 02/22/24 06:10 98 H 164/101 H 02/22/24 06:08 100 H 99 02/22/24 06:03 101 H 99 02/22/24 06:00 18 02/22/24 06:00 18 02/22/24 06:00 18 02/22/24 06:00 18 02/22/24 05:58 101 H 99 02/22/24 05:53 107 H 98 02/22/24 05:48 103 H 100 02/22/24 05:43 92 H 95 02/22/24 05:39 92 H 142/85 H 02/22/24 05:38 92 H 95 02/22/24 05:33 95 H 95 02/22/24 05:30 18 02/22/24 05:30 97.7 F 18 02/22/24 05:28 94 H 96 02/22/24 05:23 91 H 95 02/22/24 05:18 93 H 95 02/22/24 05:13 92 H 95 02/22/24 05:10 95 H 155/87 H 02/22/24 05:08 94 H 97 02/22/24 05:03 96 H 98 02/22/24 05:00 18 02/22/24 05:00 16 02/22/24 05:00 16 02/22/24 05:00 16 02/22/24 05:00 16 02/22/24 04:58 95 H 97 02/22/24 04:53 95 H 97 02/22/24 04:48 102 H 97 02/22/24 04:44 93 H 145/78 H 02/22/24 04:43 98 H 97 02/22/24 04:39 105 H 178/92 H 02/22/24 04:38 102 H 98 02/22/24 04:33 107 H 99 02/22/24 04:28 108 H 99 02/22/24 04:23 102 H 100 02/22/24 04:18 99 02/22/24 04:18 101 H 02/22/24 04:18 100 H 151/87 H 02/22/24 04:16 102 H 179/106 H 02/22/24 04:13 93 H 98 02/22/24 04:09 88 165/85 H 02/22/24 04:08 89 98 02/22/24 04:03 90 96 02/22/24 04:00 18 02/22/24 03:58 93 H 98 02/22/24 03:53 91 H 96 02/22/24 03:48 96 H 95 02/22/24 03:43 90 94 02/22/24 03:39 86 159/80 H 02/22/24 03:38 89 98 02/22/24 03:33 96 H 95 02/22/24 03:30 16 02/22/24 03:30 16 02/22/24 03:29 88 89 L 02/22/24 03:28 95 H 95 02/22/24 03:23 91 H 95 02/22/24 03:18 91 H 99 02/22/24 03:13 90 96 02/22/24 03:09 100 H 149/84 H 02/22/24 03:08 95 H 95 02/22/24 03:03 95 H 94 Coding Level of Care Code None Diagnoses Encounter for induction of labor Z34.90 Preeclampsia O14.90
[2024-02-22] MEDS: fentaNYL citrate PF 100 MCG/2 ML VIAL ONE (16:41)
[2024-02-22] MEDS: BUPIVACAINE 0.25% PF 30 ML VIAL ONE (16:41)
[2024-02-22] MEDS: ePHEDrine sulfate 50 MG/ML AMP ONE (16:41)
[2024-02-22] MEDS: fentANYL 2 MCG/ML BUPIVacaine 0.125%-NSS 100ML BAG ONE (16:42)
[2024-02-22] MEDS: fentaNYL citrate PF 100 MCG/2 ML VIAL EPI STA (16:42)
[2024-02-22] MEDS: SODIUM CHLORIDE 0.9% PF INJ 10 ML VIAL ONE (16:42)
[2024-02-22] MEDS: BUPIVACAINE 0.25% PF 30 ML VIAL EPI STA (16:42)
[2024-02-22] MEDS: LIDOCAINE 2%/EPINEPHRINE 1:200,000 20 ML PF EPI STA (16:43)
[2024-02-22] MEDS: SODIUM CHLORIDE 0.9% PF INJ 10 ML VIAL EPI STA (16:43)
--- NOTE | 2024-02-22 17:45 | Labor Progress Brief Note ---
Date of Service February 22, 2024 Subjective feels pressure, nurse exam complete but wanted me to recheck Assessment & Plan (1) Encounter for induction of labor: (2) Preeclampsia: Plan had had ok urine output but tired, will check mag levels, dtrs +1 more recently. will reposition to try to enc rotation and then restart 2nd stage in 1hr fhts categ 1. c/w pit and mag. Admission and Anticipated Discharge Date Admission Date: February 22, 2024 Physical Exam Constitutional: WD/WN, vitals as above Genitourinary: Manual OB Exam: + cervical dilation 10 cm, + cervical effacement 100% and + station 0 (likely OP) and + 1 OB Exam Monitor Tracing: + external FHT monitor used, + external uterine monitor used (q3 pit at 25), + category I, + normal FHT variability and + early decelerations present lazo removed and pushed x 2, minimal descent to no descent, suspect OP Results & Data Vital Signs (Past 12 Hours) Vital Signs Temp Pulse Resp BP Pulse Ox 02/22/24 17:34 102 H 95 02/22/24 17:28 113 H 91 02/22/24 17:26 100 H 135/69 02/22/24 17:23 93 H 100 02/22/24 17:18 115 H 98 02/22/24 17:13 103 H 99 02/22/24 17:08 101 H 99 02/22/24 17:03 100 H 97 02/22/24 16:58 100 H 97 02/22/24 16:56 99 H 131/72 02/22/24 16:53 101 H 97 02/22/24 16:48 98 H 96 02/22/24 16:43 100 H 96 02/22/24 16:38 98 H 97 02/22/24 16:33 99 H 96 02/22/24 16:28 103 H 98 02/22/24 16:26 100 H 142/82 H 02/22/24 16:23 101 H 96 02/22/24 16:18 104 H 97 02/22/24 16:13 104 H 100 02/22/24 16:09 17 02/22/24 16:09 97.5 F L 17 02/22/24 16:08 103 H 98 02/22/24 16:03 97 H 98 02/22/24 15:58 101 H 96 05/11/16 15:57 97 H 144/73 H 05 15:53 101 H 100 05/11/16 15:48 100 H 100 05 15:43 100 H 99 05 15:38 98 H 95 05 15:33 97 H 100 05 15:28 109 H 99 05 15:27 99 H 151/83 H 05 15:23 101 H 98 05 15:18 100 H 100 05 15:13 102 H 99 05 15:08 103 H 98 05 15:03 103 H 98 05 14:58 14 02/22/24 14:58 99 H 99 02/22/24 14:56 99 H 131/73 05 14:53 107 H 97 02/22/24 14:48 100 H 98 02/22/24 14:45 100 H 134/76 05 14:43 112 H 97 02/22/24 14:38 101 H 99 02/22/24 14:33 104 H 95 05 14:28 99 H 97 02/22/24 14:26 97 H 132/78 05/11/16 14:23 97 H 98 02/22/24 14:18 97 H 95 02/22/24 14:13 95 H 95 02/22/24 14:08 97 H 96 02/22/24 14:05 97.7 F 14 02/22/24 14:03 95 H 95 02/22/24 14:00 16 02/22/24 14:00 14 02/22/24 13:58 97 H 95 02/22/24 13:56 96 H 136/72 05/11/16 13:53 90 98 05 13:48 98 H 96 05 13:44 96 H 138/78 05 13:43 103 H 99 05 13:38 94 H 95 05 13:33 97 H 98 05 13:28 100 H 140/81 100 05 13:23 93 H 100 05/11/16 13:18 93 H 100 05 13:13 94 H 134/74 98 05/01/24 13:08 107 H 93 02/22/24 13:03 93 H 99 02/22/24 13:00 17 02/22/24 12:58 90 135/73 98 02/22/24 12:53 89 100 02/22/24 12:48 93 H 96 02/22/24 12:43 90 137/76 98 02/22/24 12:38 91 H 100 02/22/24 12:33 90 99 02/22/24 12:28 90 125/77 98 02/22/24 12:23 87 99 02/22/24 12:18 90 98 02/22/24 12:13 92 H 99 02/22/24 12:09 92 H 116/72 02/22/24 12:08 89 97 02/22/24 12:03 92 H 99 02/22/24 12:00 16 02/22/24 12:00 98.1 F 02/22/24 11:59 86 115/69 02/22/24 11:58 86 97 02/22/24 11:53 89 98 02/22/24 11:49 85 114/72 02/22/24 11:48 84 99 02/22/24 11:43 89 97 02/22/24 11:38 89 98/56 L 99 02/22/24 11:33 85 94 02/22/24 11:28 96 02/22/24 11:28 86 02/22/24 11:28 80 103/57 L 02/22/24 11:23 94 02/22/24 11:23 80 02/22/24 11:23 83 92 02/22/24 11:20 79 100/59 L 02/22/24 11:18 81 93 02/22/24 11:14 83 92 02/22/24 11:13 78 92 02/22/24 11:08 82 107/58 L 96 02/22/24 11:03 85 97 02/22/24 11:00 16 02/22/24 11:00 73 104/58 L 02/22/24 10:58 96 02/22/24 10:58 57 L 02/22/24 10:58 64 99/54 L 02/22/24 10:56 56 L 92/53 L 02/22/24 10:53 95 H 98 02/22/24 10:48 98 H 98 02/22/24 10:43 100 H 95 02/22/24 10:38 95 H 99 02/22/24 10:33 93 H 99 02/22/24 10:32 96 H 141/83 H 02/22/24 10:28 94 H 96 02/22/24 10:23 96 H 98 02/22/24 10:18 94 H 96 02/22/24 10:13 97 H 96 02/22/24 10:08 91 H 99 02/22/24 10:03 96 H 97 02/22/24 10:02 95 H 142/85 H 02/22/24 10:00 16 02/22/24 10:00 97.9 F 02/22/24 09:58 92 H 94 02/22/24 09:53 93 H 94 02/22/24 09:51 90 120/72 02/22/24 09:48 93 H 94 02/22/24 09:43 94 H 93 02/22/24 09:41 90 135/77 02/22/24 09:38 94 H 96 02/22/24 09:33 92 H 94 02/22/24 09:31 93 H 139/79 02/22/24 09:28 99 H 97 02/22/24 09:23 92 H 96 02/22/24 09:18 94 H 98 02/22/24 09:16 97 H 139/75 02/22/24 09:13 99 H 95 02/22/24 09:11 93 H 135/78 02/22/24 09:08 90 95 02/22/24 09:06 95 H 128/77 02/22/24 09:03 95 H 95 02/22/24 09:01 94 H 138/85 02/22/24 08:58 97 H 98 02/22/24 08:57 99 H 144/88 H 02/22/24 08:53 98 H 98 02/22/24 08:51 99 H 154/86 H 02/22/24 08:48 98 H 99 02/22/24 08:45 104 H 152/87 H 02/22/24 08:43 97 02/22/24 08:43 101 H 02/22/24 08:43 99 H 153/87 H 02/22/24 08:41 101 H 153/88 H 02/22/24 08:39 100 H 169/97 H 02/22/24 08:38 98 02/22/24 08:38 105 H 02/22/24 08:38 100 H 179/101 H 02/22/24 08:33 103 H 99 02/22/24 08:28 102 H 100 02/22/24 08:23 103 H 100 02/22/24 08:18 98 H 99 02/22/24 08:13 97 H 99 02/22/24 08:11 97 H 153/87 H 02/22/24 08:08 103 H 100 02/22/24 08:03 107 H 100 02/22/24 07:58 92 H 100 02/22/24 07:53 92 H 98 02/22/24 07:48 93 H 98 02/22/24 07:45 98.1 F 16 02/22/24 07:43 97 H 97 02/22/24 07:40 98 H 137/79 02/22/24 07:38 100 H 96 02/22/24 07:33 98 H 97 02/22/24 07:28 100 H 97 02/22/24 07:23 102 H 98 02/22/24 07:18 96 H 96 02/22/24 07:13 97 H 99 02/22/24 07:09 93 H 155/86 H 02/22/24 07:08 98 02/22/24 07:08 97 H 02/22/24 07:08 94 H 164/87 H 02/22/24 07:03 98 02/22/24 07:03 100 H 02/22/24 07:03 95 H 157/83 H 02/22/24 07:00 16 02/22/24 06:59 88 147/83 H 02/22/24 06:58 95 H 94 02/22/24 06:55 90 149/87 H 02/22/24 06:53 92 H 99 02/22/24 06:48 102 H 142/88 H 98 02/22/24 06:43 92 H 142/87 H 96 02/22/24 06:38 93 H 151/84 H 02/22/24 06:38 98 02/22/24 06:38 93 H 02/22/24 06:38 96 H 156/92 H 02/22/24 06:33 93 H 151/84 H 97 02/22/24 06:30 16 02/22/24 06:30 16 02/22/24 06:28 94 H 98 02/22/24 06:23 100 H 98 02/22/24 06:18 95 H 96 02/22/24 06:16 96 H 160/87 H 02/22/24 06:13 100 H 95 02/22/24 06:10 98 H 164/101 H 02/22/24 06:08 100 H 99 02/22/24 06:03 101 H 99 02/22/24 06:00 18 02/22/24 06:00 18 02/22/24 06:00 18 02/22/24 06:00 18 02/22/24 05:58 101 H 99 02/22/24 05:53 107 H 98 02/22/24 05:48 103 H 100 02/22/24 05:43 92 H 95 Coding Level of Care Code None Diagnoses Encounter for induction of labor Z34.90 Preeclampsia O14.90
--- NOTE | 2024-02-22 19:21 | Labor Progress Brief Note ---
Date of Service February 22, 2024 Subjective ctsp due to variables noted when starting pushing. apparently pt suddenly with strong urge to push and began 2nd stage, some deep variables and i was called. Assessment & Plan (1) Encounter for induction of labor: (2) Preeclampsia: Plan no real descent with pt pushing but only able to push twice for me (did push with nurse briefly prior to that). cephalic maybe +1 now. i have offered pt c/s delivery as i suspect ftd. she has not really pushed for signficant time. unclear how baby will tolerate the 2nd stage but currently categ 1. options are to rest 30-60min only if fetus looks categ 1 and then start pushing, if after 1hr of pushing on my reassessment no descent then will rec c/s for FTD, if during that time or while she is resting, if fhts are of concern will rec c/s. explained to pt that given exam i feel she will have a lengthier 2nd stage then with her prior and so if already too fatigued unsure about her ability to withstand pushing stage, for that reason i also offered her c/s now. Of note ctx have been hard to keep close due to magnesium as well, still would suspect cephalic would have descended better by now even with ctx pressure alone, suspect OP position as well. Pt insists at this time she wants to rest and will let me know her decision. fhts categ 1. spouse present and aware of my thoughts and concerns. Admission and Anticipated Discharge Date Admission Date: February 22, 2024 Physical Exam Constitutional: WD/WN, vitals as above Genitourinary: Manual OB Exam: + cervical dilation 10 cm, + cervical effacement 100% and + station + 1 OB Exam Monitor Tracing: + external FHT monitor used, + external uterine monitor used (not traced well), + category I, + normal FHT variability and + early decelerations present pt pushed x 2, not feeling much again. she request rest. of note variables resolved with left lateral positioning. pit at 25 and increased to 27 Results & Data Vital Signs (Past 12 Hours) Vital Signs Temp Pulse Resp BP Pulse Ox 02/22/24 19:09 97 H 94 02/22/24 19:05 100 H 100/57 L 02/22/24 19:04 101 H 97 02/22/24 18:59 57 L 02/22/24 18:59 99 H 02/22/24 18:59 99 H 89 L 02/22/24 18:54 104 H 100 02/22/24 18:51 94 H 92 02/22/24 18:49 94 H 95 02/22/24 18:44 94 H 95 02/22/24 18:42 94 H 92 02/22/24 18:39 92 H 97 02/22/24 18:34 88 95 02/22/24 18:33 122 H 90 02/22/24 18:29 111 H 98 02/22/24 18:24 109 H 99 02/22/24 18:19 114 H 98 02/22/24 18:14 105 H 97 02/22/24 18:09 104 H 97 02/22/24 18:04 106 H 99 02/22/24 17:59 105 H 98 02/22/24 17:54 103 H 96 02/22/24 17:49 102 H 99 02/22/24 17:44 105 H 96 02/22/24 17:39 103 H 98 02/22/24 17:34 102 H 95 02/22/24 17:28 113 H 91 02/22/24 17:26 100 H 135/69 02/22/24 17:23 93 H 100 02/22/24 17:18 115 H 98 02/22/24 17:13 103 H 99 02/22/24 17:08 101 H 99 02/22/24 17:03 100 H 97 02/22/24 17:00 17 02/22/24 16:58 100 H 97 02/22/24 16:56 99 H 131/72 02/22/24 16:53 101 H 97 02/22/24 16:48 98 H 96 02/22/24 16:43 100 H 96 02/22/24 16:38 98 H 97 02/22/24 16:33 99 H 96 02/22/24 16:28 103 H 98 02/22/24 16:26 100 H 142/82 H 02/22/24 16:23 101 H 96 02/22/24 16:18 104 H 97 02/22/24 16:13 104 H 100 02/22/24 16:09 17 02/22/24 16:09 97.5 F L 17 02/22/24 16:08 103 H 98 05 16:03 97 H 98 05/11/16 15:58 101 H 96 05 15:57 97 H 144/73 H 02/22/24 15:53 101 H 100 05 15:48 100 H 100 02/22/24 15:43 100 H 99 02/22/24 15:38 98 H 95 02/22/24 15:33 97 H 100 02/22/24 15:28 109 H 99 02/22/24 15:27 99 H 151/83 H 05 15:23 101 H 98 05 15:18 100 H 100 02/22/24 15:13 102 H 99 02/22/24 15:08 103 H 98 02/22/24 15:03 103 H 98 02/22/24 14:58 14 02/22/24 14:58 99 H 99 02/22/24 14:56 99 H 131/73 05 14:53 107 H 97 02/22/24 14:48 100 H 98 02/22/24 14:45 100 H 134/76 05 14:43 112 H 97 02/22/24 14:38 101 H 99 02/22/24 14:33 104 H 95 02/22/24 14:28 99 H 97 02/22/24 14:26 97 H 132/78 05 14:23 97 H 98 02/22/24 14:18 97 H 95 02/22/24 14:13 95 H 95 02/22/24 14:08 97 H 96 02/22/24 14:05 97.7 F 14 02/22/24 14:03 95 H 95 05 14:00 16 02/22/24 14:00 14 02/22/24 13:58 97 H 95 02/22/24 13:56 96 H 136/72 05 13:53 90 98 02/22/24 13:48 98 H 96 02/22/24 13:44 96 H 138/78 05 13:43 103 H 99 05 13:38 94 H 95 05 13:33 97 H 98 05 13:28 100 H 140/81 100 05 13:23 93 H 100 02/22/24 13:18 93 H 100 02/22/24 13:13 94 H 134/74 98 02/22/24 13:08 107 H 93 02/22/24 13:03 93 H 99 02/22/24 13:00 17 02/22/24 12:58 90 135/73 98 02/22/24 12:53 89 100 02/22/24 12:48 93 H 96 02/22/24 12:43 90 137/76 98 02/22/24 12:38 91 H 100 02/22/24 12:33 90 99 02/22/24 12:28 90 125/77 98 02/22/24 12:23 87 99 02/22/24 12:18 90 98 02/22/24 12:13 92 H 99 02/22/24 12:09 92 H 116/72 02/22/24 12:08 89 97 02/22/24 12:03 92 H 99 02/22/24 12:00 16 02/22/24 12:00 98.1 F 02/22/24 11:59 86 115/69 02/22/24 11:58 86 97 02/22/24 11:53 89 98 02/22/24 11:49 85 114/72 02/22/24 11:48 84 99 02/22/24 11:43 89 97 02/22/24 11:38 89 98/56 L 99 02/22/24 11:33 85 94 02/22/24 11:28 96 02/22/24 11:28 86 02/22/24 11:28 80 103/57 L 02/22/24 11:23 94 02/22/24 11:23 80 02/22/24 11:23 83 92 02/22/24 11:20 79 100/59 L 02/22/24 11:18 81 93 02/22/24 11:14 83 92 02/22/24 11:13 78 92 02/22/24 11:08 82 107/58 L 96 02/22/24 11:03 85 97 02/22/24 11:00 16 02/22/24 11:00 73 104/58 L 02/22/24 10:58 96 02/22/24 10:58 57 L 02/22/24 10:58 64 99/54 L 02/22/24 10:56 56 L 92/53 L 02/22/24 10:53 95 H 98 02/22/24 10:48 98 H 98 02/22/24 10:43 100 H 95 02/22/24 10:38 95 H 99 02/22/24 10:33 93 H 99 02/22/24 10:32 96 H 141/83 H 02/22/24 10:28 94 H 96 02/22/24 10:23 96 H 98 02/22/24 10:18 94 H 96 02/22/24 10:13 97 H 96 02/22/24 10:08 91 H 99 02/22/24 10:03 96 H 97 02/22/24 10:02 95 H 142/85 H 02/22/24 10:00 16 02/22/24 10:00 97.9 F 02/22/24 09:58 92 H 94 02/22/24 09:53 93 H 94 02/22/24 09:51 90 120/72 02/22/24 09:48 93 H 94 02/22/24 09:43 94 H 93 02/22/24 09:41 90 135/77 02/22/24 09:38 94 H 96 02/22/24 09:33 92 H 94 02/22/24 09:31 93 H 139/79 02/22/24 09:28 99 H 97 02/22/24 09:23 92 H 96 02/22/24 09:18 94 H 98 02/22/24 09:16 97 H 139/75 02/22/24 09:13 99 H 95 02/22/24 09:11 93 H 135/78 02/22/24 09:08 90 95 02/22/24 09:06 95 H 128/77 02/22/24 09:03 95 H 95 02/22/24 09:01 94 H 138/85 02/22/24 08:58 97 H 98 02/22/24 08:57 99 H 144/88 H 02/22/24 08:53 98 H 98 02/22/24 08:51 99 H 154/86 H 02/22/24 08:48 98 H 99 02/22/24 08:45 104 H 152/87 H 02/22/24 08:43 97 02/22/24 08:43 101 H 02/22/24 08:43 99 H 153/87 H 02/22/24 08:41 101 H 153/88 H 02/22/24 08:39 100 H 169/97 H 02/22/24 08:38 98 02/22/24 08:38 105 H 02/22/24 08:38 100 H 179/101 H 02/22/24 08:33 103 H 99 02/22/24 08:28 102 H 100 02/22/24 08:23 103 H 100 02/22/24 08:18 98 H 99 02/22/24 08:13 97 H 99 02/22/24 08:11 97 H 153/87 H 02/22/24 08:08 103 H 100 02/22/24 08:03 107 H 100 02/22/24 07:58 92 H 100 02/22/24 07:53 92 H 98 02/22/24 07:48 93 H 98 02/22/24 07:45 98.1 F 16 02/22/24 07:43 97 H 97 02/22/24 07:40 98 H 137/79 02/22/24 07:38 100 H 96 02/22/24 07:33 98 H 97 02/22/24 07:28 100 H 97 02/22/24 07:23 102 H 98 02/22/24 07:18 96 H 96 Coding Level of Care Code None Diagnoses Encounter for induction of labor Z34.90 Preeclampsia O14.90
--- NOTE | 2024-02-22 21:18 | Labor Progress Brief Note ---
Date of Service February 22, 2024 Subjective pt pushing Assessment & Plan (1) Encounter for induction of labor: (2) Preeclampsia: (3) Obesity affecting : Plan pt pushing for >1hr with no significant descent. also with pit at 30, no regular consistent ctx and pt is fatigued. Given her FTD and suspect OP position, rec c/s and pt agrees. Consent reviewed and signed. anesth and nursery aware. Admission and Anticipated Discharge Date Admission Date: February 22, 2024 Physical Exam Constitutional: WD/WN, vitals as above Genitourinary: Manual OB Exam: + cervical dilation 10 cm, + cervical effacement 100% and + station + 1 OB Exam Monitor Tracing: + external FHT monitor used, + external uterine monitor used (q4-8, pit at 30), + category I and + normal FHT variability FTD, molding. no change in station with pushing. Results & Data Vital Signs (Past 12 Hours) Vital Signs Temp Pulse Resp BP Pulse Ox 02/22/24 21:14 121 H 89 L 02/22/24 21:12 103 H 89 L 02/22/24 21:09 121 H 93 02/22/24 21:06 110 H 86 L 02/22/24 21:04 104 H 95 02/22/24 21:02 97 H 122/56 L 02/22/24 21:00 111 H 88 L 02/22/24 20:59 101 H 94 02/22/24 20:54 105 H 94 02/22/24 20:53 116 H 89 L 02/22/24 20:49 99 H 92 02/22/24 20:46 118 H 86 L 02/22/24 20:44 108 H 97 02/22/24 20:41 109 H 87 L 02/22/24 20:39 102 H 95 02/22/24 20:36 99 H 92 02/22/24 20:34 100 H 94 02/22/24 20:33 107 H 135/67 02/22/24 20:30 101 H 90 02/22/24 20:29 101 H 96 02/22/24 20:24 102 H 98 02/22/24 20:23 111 H 90 02/22/24 20:19 106 H 100 02/22/24 20:14 103 H 99 02/22/24 20:13 118 H 89 L 02/22/24 20:09 98 H 96 02/22/24 20:04 101 H 97 02/22/24 20:03 106 H 119/61 05 19:59 100 H 95 02/22/24 19:54 101 H 94 02/22/24 19:49 99 H 94 02/22/24 19:47 98 H 112/57 L 02/22/24 19:44 100 H 93 02/22/24 19:43 99 H 92 02/22/24 19:39 101 H 95 02/22/24 19:34 100 H 92 02/22/24 19:29 101 H 99 02/22/24 19:24 98 H 95 02/22/24 19:19 98 H 95 02/22/24 19:15 18 02/22/24 19:14 93 H 96 02/22/24 19:09 97 H 94 02/22/24 19:05 100 H 100/57 L 02/22/24 19:04 101 H 97 02/22/24 19:00 18 02/22/24 19:00 97.9 F 18 02/22/24 18:59 57 L 02/22/24 18:59 99 H 02/22/24 18:59 99 H 89 L 02/22/24 18:54 104 H 100 02/22/24 18:51 94 H 92 02/22/24 18:49 94 H 95 02/22/24 18:44 94 H 95 02/22/24 18:42 94 H 92 02/22/24 18:39 92 H 97 02/22/24 18:34 88 95 02/22/24 18:33 122 H 90 02/22/24 18:29 111 H 98 02/22/24 18:24 109 H 99 02/22/24 18:19 114 H 98 02/22/24 18:14 105 H 97 02/22/24 18:09 104 H 97 02/22/24 18:04 106 H 99 02/22/24 17:59 105 H 98 02/22/24 17:54 103 H 96 02/22/24 17:49 102 H 99 02/22/24 17:44 105 H 96 02/22/24 17:39 103 H 98 02/22/24 17:34 102 H 95 02/22/24 17:28 113 H 91 02/22/24 17:26 100 H 135/69 05 17:23 93 H 100 02/22/24 17:18 115 H 98 05 17:13 103 H 99 02/22/24 17:08 101 H 99 02/22/24 17:03 100 H 97 02/22/24 17:00 17 02/22/24 16:58 100 H 97 02/22/24 16:56 99 H 131/72 02/22/24 16:53 101 H 97 02/22/24 16:48 98 H 96 02/22/24 16:43 100 H 96 02/22/24 16:38 98 H 97 02/22/24 16:33 99 H 96 02/22/24 16:28 103 H 98 02/22/24 16:26 100 H 142/82 H 02/22/24 16:23 101 H 96 02/22/24 16:18 104 H 97 02/22/24 16:13 104 H 100 02/22/24 16:09 17 02/22/24 16:09 97.5 F L 17 02/22/24 16:08 103 H 98 02/22/24 16:03 97 H 98 02/22/24 15:58 101 H 96 02/22/24 15:57 97 H 144/73 H 02/22/24 15:53 101 H 100 02/22/24 15:48 100 H 100 02/22/24 15:43 100 H 99 02/22/24 15:38 98 H 95 02/22/24 15:33 97 H 100 02/22/24 15:28 109 H 99 02/22/24 15:27 99 H 151/83 H 05 15:23 101 H 98 02/22/24 15:18 100 H 100 02/22/24 15:13 102 H 99 02/22/24 15:08 103 H 98 02/22/24 15:03 103 H 98 02/22/24 14:58 14 02/22/24 14:58 99 H 99 02/22/24 14:56 99 H 131/73 05 14:53 107 H 97 05 14:48 100 H 98 02/22/24 14:45 100 H 134/76 05 14:43 112 H 97 02/22/24 14:38 101 H 99 02/22/24 14:33 104 H 95 05 14:28 99 H 97 02/22/24 14:26 97 H 132/78 05 14:23 97 H 98 05 14:18 97 H 95 02/22/24 14:13 95 H 95 02/22/24 14:08 97 H 96 02/22/24 14:05 97.7 F 14 02/22/24 14:03 95 H 95 02/22/24 14:00 16 02/22/24 14:00 14 02/22/24 13:58 97 H 95 02/22/24 13:56 96 H 136/72 05 13:53 90 98 05 13:48 98 H 96 02/22/24 13:44 96 H 138/78 02/22/24 13:43 103 H 99 02/22/24 13:38 94 H 95 02/22/24 13:33 97 H 98 02/22/24 13:28 100 H 140/81 100 02/22/24 13:23 93 H 100 02/22/24 13:18 93 H 100 02/22/24 13:13 94 H 134/74 98 05 13:08 107 H 93 02/22/24 13:03 93 H 99 02/22/24 13:00 17 02/22/24 12:58 90 135/73 98 02/22/24 12:53 89 100 05 12:48 93 H 96 02/22/24 12:43 90 137/76 98 02/22/24 12:38 91 H 100 02/22/24 12:33 90 99 05 12:28 90 125/77 98 02/22/24 12:23 87 99 05 12:18 90 98 05 12:13 92 H 99 02/22/24 12:09 92 H 116/72 05 12:08 89 97 05 12:03 92 H 99 05 12:00 16 02/22/24 12:00 98.1 F 02/22/24 11:59 86 115/69 05 11:58 86 97 02/22/24 11:53 89 98 02/22/24 11:49 85 114/72 02/22/24 11:48 84 99 02/22/24 11:43 89 97 02/22/24 11:38 89 98/56 L 99 02/22/24 11:33 85 94 02/22/24 11:28 96 02/22/24 11:28 86 02/22/24 11:28 80 103/57 L 02/22/24 11:23 94 02/22/24 11:23 80 02/22/24 11:23 83 92 02/22/24 11:20 79 100/59 L 02/22/24 11:18 81 93 02/22/24 11:14 83 92 02/22/24 11:13 78 92 02/22/24 11:08 82 107/58 L 96 02/22/24 11:03 85 97 02/22/24 11:00 16 02/22/24 11:00 73 104/58 L 02/22/24 10:58 96 02/22/24 10:58 57 L 02/22/24 10:58 64 99/54 L 02/22/24 10:56 56 L 92/53 L 02/22/24 10:53 95 H 98 02/22/24 10:48 98 H 98 02/22/24 10:43 100 H 95 02/22/24 10:38 95 H 99 02/22/24 10:33 93 H 99 02/22/24 10:32 96 H 141/83 H 02/22/24 10:28 94 H 96 02/22/24 10:23 96 H 98 02/22/24 10:18 94 H 96 02/22/24 10:13 97 H 96 02/22/24 10:08 91 H 99 02/22/24 10:03 96 H 97 02/22/24 10:02 95 H 142/85 H 02/22/24 10:00 16 02/22/24 10:00 97.9 F 02/22/24 09:58 92 H 94 02/22/24 09:53 93 H 94 02/22/24 09:51 90 120/72 02/22/24 09:48 93 H 94 02/22/24 09:43 94 H 93 02/22/24 09:41 90 135/77 02/22/24 09:38 94 H 96 02/22/24 09:33 92 H 94 02/22/24 09:31 93 H 139/79 02/22/24 09:28 99 H 97 02/22/24 09:23 92 H 96 02/22/24 09:18 94 H 98 Coding Level of Care Code None Diagnoses Encounter for induction of labor Z34.90 Preeclampsia O14.90 Obesity affecting O99.210
[2024-02-22] MEDS ORDERED: MoRPHine SULFATE PF 1 MG/ML 10 ML AMP/VIAL ONE (21:46)
[2024-02-22] MEDS ORDERED: fentaNYL citrate PF 100 MCG/2 ML VIAL ONE (21:46)
[2024-02-22] MEDS ORDERED: LIDOCAINE 2%/EPINEPHRINE 1:200,000 20 ML PF ONE ×2 (21:46)
[2024-02-22] MEDS ORDERED: OXYTOCIN 10 UNITS/ML VIAL ONE ×3 (21:46)
[2024-02-22] MEDS: ceFAZolin 3000MG 3,000 MG/72.5 ML BAG IV SCH (21:59)
[2024-02-22] MEDS ORDERED: LACTATED RINGER'S 500 ML IV PRN (22:40)
[2024-02-22] MEDS ORDERED: KETOROLAC 30 MG/ML VIAL IV PRN (22:40)
[2024-02-22] MEDS ORDERED: NALOXONE HCL 0.08 MG in SYRINGE 1.8 ML IV PRN (22:40)
[2024-02-22] MEDS ORDERED: HYDROmorphone INJ 0.5 MG/0.5 ML SYR IV PRN (22:40)
[2024-02-22] MEDS ORDERED: DC INTRASPINAL MORPHINE SCH (22:45)
[2024-02-22] MEDS ORDERED: NO NARCOTICS OR SEDATIVES SCH (22:45)
[2024-02-22] MEDS ORDERED: ONDANSETRON INJ 2 MG/ML 2 ML VIAL ONE (23:16)
--- NOTE | 2024-02-22 23:20 | Operative Report ---
PG Post Operative Report Pre & Post Diagnosis Operation Date: 02/22/24 21:35 Pre-Op Diagnosis: 1. term intrauterine 2. Preeclampsia with severe features 3. Failure to descend Post-Op Diagnosis: 1. term intrauterine 2. Preeclampsia with severe features 3. Failure to descend I identified the patient and participated in the time-out.: Yes Procedure Operation Date: 02/22/24 21:35 Actual Procedures p Primary Low Transverse Section in , live female child born at 2236 - Yessi Urias MD, FACOG Surgeon Yessi Urias MD, FACOG Digital Account Manager Mae Estimated Blood Loss 152 Findings Consistent with Post-Op Diagnosis (viable infant, apgars pending. normal uterus tubes and ovaries bilaterally, edematous tissue. ) Fluids 800cc Specimens cord blood Drains lazo Anesthesia Type Labor Epidural Complications none Disposition Accompanied Patient To Recovery: No Disposition: L&D Indications 28yo with cc of induction for preeclampsia with severe features at term. also complicated by obesity. She dilated to complete and was pushing with failure to descend. Recommended and agreed to proceed with section. Description of Procedure The patient was taken to the operating room and identified. After adequate anesthesia was obtained, she was placed in the supine position with a leftward tilt on the operating table and prepped and draped in the usual sterile fashion. A lazo catheter had already been placed. The knife was used to create a Pfannensteil skin incision that was carried down to the underlying layer of fascia. The fascia was nicked in the midline and this opening was extended laterally using Hope scissors. Iris clamps were placed on the superior and inferior aspect of the fascial incision tenting it upward and the underlying rectus muscles were dissected off the overlying fascia both sharply and bluntly using Hope scissors. The rectus muscles were bluntly in the midline. The peritoneal cavity was bluntly entered into. This opening was stretched. The bladder blade was placed. The vesicouterine peritoneum was elevated and opened up into and the bladder flap was created digitally and bladder blade was replaced. The knife was used to create a hysterotomy and this opening was stretched. The operators hand was placed through the hysterotomy and the bladder blade was removed. The head was elevated and flexed and with fundal pressure the head was delivered. The shoulders and body were rapidly delivered. The cord was clamped and cut and the infant's mouth and nares were bulb suction. The infant was handed off to the awaiting pediatricians. Cord b lood was obtained. The placenta was manually expressed. The uterus was exteriorized and cleared of all clots and debris. Dilute IV Pitocin was begun. The uterine tone was improving but additional uterotonic hemabate given into muscle of uterus. The hysterotomy was closed in a running interlocking fashion using 0 Vicryl followed by a second imbricating layer of 0 Vicryl. The hysterotomy was not hemostatic with some bleeding sites in midline and those were secured with figure of eight sutures of 2-0 vicryl for excellent hemostasis. The pelvis was suctioned. The uterus was returned to the abdomen. The gutters were cleared of all clots and debris. The hysterotomy was reinspected and noted to be hemostatic. The fascia was then closed in running fashion using 0 Vicryl. The subcutaneous fat was copiously irrigated and reapproximated using 2-0 chromic. The skin was closed in a subcuticular fashion using 4-0 monocryl. At this point the procedure was terminated. The patient was transferred to the recovery room in stable condition. All sponge, lap and needle counts are correct x2. I attest to the content of the Intraoperative Record and any orders documented therein. Any exceptions are noted below. OB Procedure Charges 40434
[2024-02-22] MEDS ORDERED: LACTATED RINGER'S 1,000 ML IV SCH (23:59)
[2024-02-22] MEDS ORDERED: HYDROCORTISONE ACETATE 25 MG SUPP PR PRN (23:59)
[2024-02-22] MEDS ORDERED: SENNA 8.6 MG TAB PO PRN (23:59)
[2024-02-22] MEDS ORDERED: DIPHTHER/TETAN/PERTUS Vaccine (Tdap, Adol/Adult) 0.5mL IM ONE (23:59)
[2024-02-22] MEDS ORDERED: BENZOCAINE 20% SPRY 85 APPLN/85 GM CAN EXT PRN (23:59)
[2024-02-22] MEDS ORDERED: MAGNESIUM HYDROXIDE SUSP 30 ML UDC PO PRN (23:59)
[2024-02-23] MEDS: OXYTOCIN 20 UNITS in LACTATED RINGER'S 1,000 ML IV SCH (00:45)
[2024-02-23] MEDS: LABETALOL HCL IV 5 MG/ML 20ML IV STA (02:03)
[2024-02-23] MEDS: ONDANSETRON INJ 2 MG/ML 2 ML VIAL IV PRN (05:30)
[2024-02-23 06:18] LABS: Basophils # (auto) 0.02 K/uL (0.00-0.20); Basophils % (auto) 0.1 %; Hematocrit (blood only) 32.5 % (37.0-47.0); Hemoglobin 10.4 g/dl (12.0-16.0); Immature Granulocytes # (auto) 0.08 K/uL (0.01-0.20); Immature Granulocytes % (auto) 0.5 %; Lymphocytes # (auto) 0.75 K/uL (1.20-3.40); Lymphocytes % (auto) 4.6 %; Mean Corpuscular Volume 68.9 fL (80.0-100.0); Monocytes # (auto) 0.85 K/uL (0.11-0.59); Monocytes % (auto) 5.3 %; Neutrophils # (auto) 14.46 K/uL (1.40-6.50); Neutrophils % (auto) 89.5 %; RDW Standard Deviation 34.6 fL (36.4-46.3); Red Blood Count 4.72 M/uL (4.20-5.40); White Blood Count 16.16 K/ul (4.8-10.8)
[2024-02-23 06:43] LABS: Mean Platelet Volume 10.1 fL (9.4-12.4); Platelet Count 238 K/uL (130-400); Polychromasia 1+
--- NOTE | 2024-02-23 07:06 | Obstetrical Progress Note ---
Date of Service February 23, 2024 Assessment & Plan (1) care following delivery: (2) Preeclampsia: (3) Obesity affecting : Plan Doing well postop. good urine output. will await am labs. Will plan to cont magnesium for 24hr pp about 11-1130pm. watch bps. did have another dose labetalol iv pp. may need to start po meds. pt aware. Day #:: 1 Subjective Voiding: lazo catheter in place Diet Tolerance:: clear liquids Lochia:: Small Feeding Type:: breast feeding denies pain issues, no cp or sob or lewis. breast feeding. aware of importance of wearing scds. Constitutional: + as per Subjective / HPI Physical Exam Constitutional WD/WN, vitals as above Respiratory normal respiratory effort, lungs clear to auscultation Cardiovascular Rate/Rhythm: regular rate and regular rhythm Gastrointestinal (Abdomen) Inspection/Auscultation: abdomen normal to inspection Percussion/Palpation: abdomen soft Fundus firm 1cm down Dressing c/d/i Musculoskeletal nt calves tr pedal edema Neurologic grossly normal dtrs +2 , no clonus Psychiatric A+Ox3, euthymic affect Results & Data Vital Signs (Past 12 Hours) Vital Signs Temp Pulse Resp BP Pulse Ox 02/23/24 07:00 90 94 02/23/24 06:55 90 92 02/23/24 06:50 96 H 97 02/23/24 06:45 97 H 94 02/23/24 06:40 91 H 95 02/23/24 06:35 88 92 02/23/24 06:30 91 H 92 02/23/24 06:25 92 H 91 02/23/24 06:23 91 H 91 02/23/24 06:20 90 93 02/23/24 06:15 90 94 02/23/24 06:10 106 H 99 02/23/24 06:05 90 97 02/23/24 06:00 16 99 02/23/24 06:00 92 H 95 02/23/24 05:55 91 H 96 02/23/24 05:53 92 H 139/82 02/23/24 05:50 92 H 97 02/23/24 05:45 100 H 95 02/23/24 05:40 100 H 95 02/23/24 05:35 111 H 97 02/23/24 05:30 107 H 98 02/23/24 05:25 112 H 98 02/23/24 05:20 99 H 98 02/23/24 05:15 102 H 97 02/23/24 05:10 98 H 97 02/23/24 05:07 90 91 02/23/24 05:05 90 92 02/23/24 05:01 90 91 02/23/24 05:00 16 99 02/23/24 05:00 16 02/23/24 05:00 90 94 02/23/24 04:55 88 L 02/23/24 04:55 90 02/23/24 04:55 91 H 91 02/23/24 04:53 93 H 142/75 H 02/23/24 04:50 92 H 89 L 02/23/24 04:47 98 H 91 02/23/24 04:45 95 H 93 02/23/24 04:40 94 H 97 02/23/24 04:35 89 96 02/23/24 04:30 100 H 93 02/23/24 04:25 95 H 98 02/23/24 04:23 91 H 144/83 H 02/23/24 04:20 96 H 95 02/23/24 04:15 99 H 96 02/23/24 04:12 91 H 90 02/23/24 04:10 94 H 90 02/23/24 04:05 90 91 02/23/24 04:00 19 98 02/23/24 04:00 98.1 F 16 98 02/23/24 04:00 97 H 98 02/23/24 03:58 213 H 78 L 02/23/24 03:55 98 H 100 02/23/24 03:53 97 H 148/81 H 02/23/24 03:50 97 H 97 02/23/24 03:45 98 H 95 02/23/24 03:40 98 H 99 02/23/24 03:35 95 H 98 02/23/24 03:30 97 H 91 02/23/24 03:25 95 H 97 02/23/24 03:23 92 H 137/68 02/23/24 03:20 94 H 95 02/23/24 03:18 92 H 91 02/23/24 03:15 95 H 98 02/23/24 03:10 97 H 96 02/23/24 03:05 93 H 94 02/23/24 03:00 16 05/02/24 03:00 16 95 0502 03:00 92 H 94 05/02 02:55 96 H 97 02/23/24 02:50 91 H 136/65 92 02/23/24 02:49 95 H 91 02/23/24 02:45 96 H 130/65 83 L 02/23/24 02:42 94 H 84 L 02/23/24 02:40 96 H 142/67 H 100 02 02:35 92 H 140/66 99 02 02:31 95 H 150/68 H 02/23/24 02:30 98 H 90 /02 02:29 96 H 91 /12/17 02:25 95 H 142/80 H 99 02/23/24 02:20 92 H 134/72 96 02/23/24 02:18 91 H 136/65 02/23/24 02:15 95 H 135/71 97 02 02:13 121 H 89 L 02/23/24 02:10 93 H 135/72 99 02 02:05 89 94 02/23/24 02:04 97 H 94 02 02:02 96 H 146/83 H 02/23/24 02:00 16 95 02/23/24 02:00 97 H 97 02 01:57 95 H 94 02 01:55 100 H 97 /12/17 01:50 101 H 100 /0224 01:45 100 H 97 /02 01:43 96 H 164/89 H 02 01:41 100 H 94 05/0224 01:40 97 H 97 /0224 01:37 92 H 155/84 H 05/0224 01:35 92 H 100 05/0224 01:34 91 H 165/90 H 05/0224 01:33 16 0502 01:32 90 162/94 H 05/0224 01:30 93 H 99 /0224 01:25 94 H 100 05/02/24 01:20 92 H 100 05/02/24 01:15 96 H 100 05/0224 01:10 92 H 100 05/0224 01:05 91 H 100 05/0224 01:03 18 02/23/24 01:02 93 H 134/97 02/23/24 01:00 93 H 100 02/23/24 00:55 93 H 100 02/23/24 00:50 94 H 100 02/23/24 00:45 90 100 02/23/24 00:40 89 99 02/23/24 00:35 93 H 100 02/23/24 00:33 16 02/23/24 00:33 16 02/23/24 00:31 91 H 148/81 H 02/23/24 00:30 95 H 99 02/23/24 00:26 93 H 158/94 H 02/23/24 00:25 93 H 98 02/23/24 00:23 16 02/23/24 00:20 93 H 97 02/23/24 00:16 93 H 136/79 02/23/24 00:15 97 H 98 02/23/24 00:14 94 H 142/87 H 02/23/24 00:13 16 02/23/24 00:10 95 H 98 02/23/24 00:05 97 H 98 02/23/24 00:03 16 02/23/24 00:00 97 H 96 02/22/24 23:56 93 H 138/87 02/22/24 23:55 96 H 98 02/22/24 23:53 16 02/22/24 23:50 93 H 97 02/22/24 23:45 93 H 97 02/22/24 23:43 16 02/22/24 23:40 96 02/22/24 23:40 95 H 02/22/24 23:40 95 H 93 02/22/24 23:35 93 H 96 02/22/24 23:33 97.7 F 16 02/22/24 23:31 96 H 121/65 02/22/24 23:30 92 02/22/24 23:30 94 H 02/22/24 23:30 96 H 93 02/22/24 22:18 16 02/22/24 22:18 98.1 F 16 02/22/24 22:16 94 H 89 L 02/22/24 22:14 92 H 89 L 02/22/24 22:09 95 H 89 L 02/22/24 22:08 97 H 89 L 02/22/24 22:04 96 H 92 05/01/24 22:02 95 H 117/67 90 02/22/24 22:00 16 02/22/24 22:00 16 02/22/24 21:59 93 H 89 L 02/22/24 21:57 95 H 88 L 02/22/24 21:54 96 H 88 L 02/22/24 21:49 97 H 88 L 02/22/24 21:48 97 H 89 L 02/22/24 21:44 94 H 88 L 02/22/24 21:40 94 H 90 02/22/24 21:39 95 H 89 L 02/22/24 21:35 96 H 90 02/22/24 21:34 94 H 93 02/22/24 21:30 16 02/22/24 21:30 16 02/22/24 21:29 97 H 88 L 02/22/24 21:28 94 H 127/71 02/22/24 21:24 98 H 94 02/22/24 21:20 100 H 88 L 02/22/24 21:19 102 H 95 02/22/24 21:14 121 H 89 L 02/22/24 21:12 103 H 89 L 02/22/24 21:09 121 H 93 02/22/24 21:06 110 H 86 L 02/22/24 21:04 104 H 95 02/22/24 21:02 97 H 122/56 L 02/22/24 21:00 16 02/22/24 21:00 111 H 88 L 02/22/24 20:59 101 H 94 02/22/24 20:54 105 H 94 02/22/24 20:53 116 H 89 L 02/22/24 20:49 99 H 92 02/22/24 20:46 118 H 86 L 02/22/24 20:45 18 02/22/24 20:45 18 02/22/24 20:44 108 H 97 02/22/24 20:41 109 H 87 L 02/22/24 20:39 102 H 95 02/22/24 20:36 99 H 92 02/22/24 20:34 100 H 94 02/22/24 20:33 107 H 135/67 02/22/24 20:30 101 H 16 90 02/22/24 20:29 101 H 96 02/22/24 20:24 102 H 98 02/22/24 20:23 111 H 90 02/22/24 20:19 106 H 100 02/22/24 20:14 103 H 99 02/22/24 20:13 118 H 89 L 02/22/24 20:09 98 H 96 02/22/24 20:04 101 H 97 02/22/24 20:03 106 H 119/61 02/22/24 20:00 18 02/22/24 20:00 16 02/22/24 20:00 16 02/22/24 19:59 100 H 95 02/22/24 19:54 101 H 94 02/22/24 19:49 99 H 94 02/22/24 19:47 98 H 112/57 L 02/22/24 19:44 100 H 93 02/22/24 19:43 99 H 92 02/22/24 19:39 101 H 95 02/22/24 19:34 100 H 92 02/22/24 19:29 101 H 99 02/22/24 19:24 98 H 95 02/22/24 19:19 98 H 95 02/22/24 19:15 18 02/22/24 19:14 93 H 96 02/22/24 19:09 97 H 94 02/22/24 19:05 100 H 100/57 L 02/22/24 19:04 101 H 97
[2024-02-23] MEDS: DOCUSATE SODIUM 100 MG CAP PO SCH (09:04)
[2024-02-23] MEDS: SIMETHICONE 80 MG CHEW PO SCH (09:04)
[2024-02-23] MEDS: FERROUS SULFATE 325 MG TAB PO SCH (09:06)
[2024-02-23] MEDS: PRENATAL VITAMIN 1 TAB PO SCH (09:06)
[2024-02-23] MEDS: OXYTOCIN 20 UNITS/1002ML LR IV ONE (09:07)
[2024-02-23] MEDS: LABETALOL HCL IV 5 MG/ML 20ML IV ONE (13:28)
[2024-02-23] MEDS: AZITHROMYCIN 500 MG in DEXTROSE 5% 250 ML IV SCH (13:29)
[2024-02-23] MEDS: LIDOCAINE 2% JELLY 5 ML TUBE EXT ONE (13:29)
[2024-02-23] MEDS: MoRPHine SULFATE PF 1 MG/ML 10 ML AMP/VIAL EPI ONE (13:30)
[2024-02-23] MEDS: LACTATED RINGER'S 1,000 ML IV SCH (13:30)
[2024-02-23] MEDS: SODIUM CHLORIDE 0.9% 1,000 ML IV SCH (13:31)
[2024-02-23] MEDS ORDERED: KETOROLAC 30 MG/ML VIAL IV PRN (16:40)
[2024-02-23] MEDS ORDERED: PROMETHAZINE HCL 25 MG in SODIUM CHLORIDE 0.9% 50 ML IV PRN (16:40)
[2024-02-23] MEDS ORDERED: diphenhydrAMINE 50 MG/ML VIAL IV PRN (16:40)
[2024-02-23] MEDS ORDERED: ONDANSETRON INJ 2 MG/ML 2 ML VIAL IV PRN (16:40)
[2024-02-23] MEDS ORDERED: diphenhydrAMINE Capsule 25 MG CAP PO PRN (16:40)
[2024-02-23] MEDS: ACETAMINOPHEN 500 MG TAB PO PRN (17:35)
[2024-02-23] MEDS ORDERED: SODIUM CHLORIDE 0.9% 250 ML IV PRN (20:04)
[2024-02-23] MEDS: bisacodyL 5 MG TABEC PO SCH (20:43)
[2024-02-23] MEDS: IBUPROFEN 600 MG TAB PO PRN (21:23)
[2024-02-23] MEDS: LABETALOL HCL 200 MG TAB PO SCH (23:41)
[2024-02-24] MEDS ORDERED: bisacodyL 10 MG SUPP PR PRN
--- NOTE | 2024-02-24 07:08 | Obstetrical Progress Note ---
Date of Service February 24, 2024 Assessment & Plan (1) care following delivery: (2) Preeclampsia: Plan Overall doing well Continue labetalol q8h; monitor BPs Encourage ambulation Pain control Otherwise, routine post care Anticipate dc tomorrow Admission and Anticipated Discharge Date Admission Date: February 22, 2024 Supervising Physician Co-Signing Physician Notes Resident Physician Supervision Note: I interviewed and examined the patient. Discussed with Dr. Ribera and agree with findings and plan as documented in the note. Any exceptions or clarifications are listed here: POD2 s/p pLTCS c/b PET w/ SF. s/p mag last evening and started labetalol 200q8, good response. VSS, exam benign and wnl - small ooze from center but incision intact. - keep pad on. Continue routine care Documented By: Jessa Wall MD Subjective 28 yo post op day 2 s/p for preeclampsia. Completed 24hrs mag at 2330 on 02/22. Started on labetalol q8h. Ambulation: ambulating normally Voiding: no voiding problems Passing Gas:: Yes Diet Tolerance:: regular diet Lochia:: Small Current Pain Level: moderate Resting comfortably this AM in NAD. Denies CARR, CP, SOB, N/V/D, LE pain/swelling. Review of Systems Review of Systems: reviewed, per HPI Physical Exam Physical Exam: General: patient resting comfortably, NAD, non-toxic in appearance, answers questions appropriately. Skin: warm, dry, intact HEENT: NC/AT, anicteric sclera, conjunctiva without injection, moist mucus membranes. Heart: +S1/S2, regular, no m/r/g Lungs: equal air entry bilaterally, no rales/rhonchi/wheezes Abd: +BS, soft, NT/ND, uterine fundus firm at umbilicus, caesarean incision C/D/I. Ext: warm, no clubbing/cyanosis or edema, Joao's neg. Neuro: nonfocal, speech intact, no facial droop, moving all extremities. Results & Data Vital Signs (Past 12 Hours) Vital Signs Temp Pulse Pulse Resp BP BP Pulse Ox 02/24/24 04:00 36.7 C 85 16 130/80 97 02/24/24 00:45 89 18 109/71 02/23/24 23:17 36.8 C 90 18 153/74 H 02/23/24 23:04 90 161/85 H 02/23/24 22:30 18 02/23/24 22:29 81 152/90 H 02/23/24 22:25 87 97 02/23/24 22:20 90 97 02/23/24 22:15 88 98 02/23/24 22:10 88 98 02/23/24 22:05 86 98 02/23/24 22:00 89 98 02/23/24 21:55 86 98 02/23/24 21:50 92 H 97 02/23/24 21:45 92 H 97 02/23/24 21:40 88 98 02/23/24 21:37 84 163/90 H 02/23/24 21:35 90 99 02/23/24 21:30 16 02/23/24 21:30 90 99 02/23/24 21:25 93 H 98 02/23/24 21:20 87 97 02/23/24 21:15 85 99 02/23/24 21:10 85 99 02/23/24 21:05 88 99 02/23/24 21:00 100 H 98 02/23/24 20:59 36.5 C 85 156/87 H 02/23/24 20:55 91 H 99 02/23/24 20:50 87 99 02/23/24 20:45 88 98 02/23/24 20:40 16 02/23/24 20:40 77 97 02/23/24 20:35 78 97 02/23/24 20:30 78 98 02/23/24 20:25 78 98 02/23/24 20:20 75 97 02/23/24 20:15 81 90 02/23/24 20:13 83 133/77 02/23/24 20:12 80 90 02/23/24 20:10 80 98 02/23/24 20:05 82 96 02/23/24 20:00 86 96 02/23/24 19:55 94 02/23/24 19:55 79 02/23/24 19:55 80 91 02/23/24 19:50 93 02/23/24 19:50 89 02/23/24 19:50 82 89 L 02/23/24 19:45 78 95 02/23/24 19:40 86 98 05/02/24 19:35 89 97 02/23/24 19:30 89 97 02/23/24 19:25 88 98 02/23/24 19:20 85 99 02/23/24 19:15 18 02/23/24 19:15 18 02/23/24 19:15 02/23/24 19:15 86 99 02/23/24 19:12 84 142/79 H 02/23/24 19:10 88 98 02/23/24 19:05 91 H 98 O2 Del Method 02/24/24 04:00 Room Air 02/24/24 00:45 Room Air 02/23/24 23:17 02/23/24 23:04 02/23/24 22:30 02/23/24 22:29 02/23/24 22:25 02/23/24 22:20 02/23/24 22:15 02/23/24 22:10 02/23/24 22:05 02/23/24 22:00 02/23/24 21:55 02/23/24 21:50 02/23/24 21:45 02/23/24 21:40 02/23/24 21:37 02/23/24 21:35 02/23/24 21:30 02/23/24 21:30 02/23/24 21:25 02/23/24 21:20 02/23/24 21:15 02/23/24 21:10 02/23/24 21:05 02/23/24 21:00 02/23/24 20:59 02/23/24 20:55 02/23/24 20:50 02/23/24 20:45 02/23/24 20:40 02/23/24 20:40 02/23/24 20:35 02/23/24 20:30 02/23/24 20:25 02/23/24 20:20 02/23/24 20:15 02/23/24 20:13 02/23/24 20:12 02/23/24 20:10 02/23/24 20:05 02/23/24 20:00 02/23/24 19:55 02/23/24 19:55 02/23/24 19:55 02/23/24 19:50 02/23/24 19:50 02/23/24 19:50 02/23/24 19:45 02/23/24 19:40 02/23/24 19:35 02/23/24 19:30 02/23/24 19:25 02/23/24 19:20 02/23/24 19:15 02/23/24 19:15 02/23/24 19:15 Room Air 02/23/24 19:15 02/23/24 19:12 02/23/24 19:10 02/23/24 19:05 Resident Activity Tracking Resident Involvement: Resident Care Provided Care Provided: Adult Hospital Medicine
[2024-02-24 09:06] LABS: Hematocrit (blood only) 31.2 % (37.0-47.0); Hemoglobin 9.7 g/dl (12.0-16.0)
[2024-02-24 09:40] LABS: Rubella IgG Ab Immune (Immune); Rubella IgG Qnt 17.7 IU/mL
[2024-02-24] MEDS: oxyCODONE/ACETAMINOPHEN 5mg/325mg TAB PO PRN (14:54)
[2024-02-24] MEDS ORDERED: ZOLPIDEM TARTRATE 5 MG TAB PO PRN (16:40)
[2024-02-25] MEDS: LABETALOL HCL 200 MG TAB PO ONE (01:38)
--- NOTE | 2024-02-25 07:09 | Obstetrical Progress Note ---
Date of Service February 25, 2024 Assessment & Plan (1) care following delivery: (2) Preeclampsia: Plan Overall doing well Continue labetalol q8h; monitor BPs Encourage ambulation Pain control Otherwise, routine post care Admission and Anticipated Discharge Date Admission Date: February 22, 2024 Supervising Physician Co-Signing Physician Notes Resident Physician Supervision Note: I interviewed and examined the patient. Discussed with Dr. Ribera and agree with findings and plan as documented in the note. Any exceptions or clarifications are listed here: BP's began to rise last evening at she received an additional dose of Labetalol 200mg at 0130. Her subsequent BP's were just above the normal range. The labetalol dose was then changed to 400mg Labetalol q8H. We will monitor BP's at this new dose prior to discharging later today to be sure it is effective. Documented By: Micaela Boles MD, FACOG Subjective 28 yo post op day 3 s/p for preeclampsia. Completed 24hrs mag at 2330 on 02/22. Started on labetalol q8h. BPs increased throughout the day yesterday on labetalol. Pt desires dc. Ambulation: ambulating normally Voiding: no voiding problems Passing Gas:: Yes Diet Tolerance:: regular diet Lochia:: Small Current Pain Level: moderate Resting comfortably this AM in NAD. Denies CARR, CP, SOB, N/V/D, LE pain/swelling. Review of Systems Review of Systems: reviewed, per HPI Physical Exam Physical Exam: General: patient resting comfortably, NAD, non-toxic in appearance, answers questions appropriately. Skin: warm, dry, intact HEENT: NC/AT, anicteric sclera, conjunctiva without injection, moist mucus membranes. Heart: +S1/S2, regular, no m/r/g Lungs: equal air entry bilaterally, no rales/rhonchi/wheezes Abd: +BS, soft, NT/ND, uterine fundus firm at umbilicus, caesarean incision C/D/I. Ext: warm, no clubbing/cyanosis or edema, Joao's neg. Neuro: nonfocal, speech intact, no facial droop, moving all extremities. Results & Data Vital Signs (Past 12 Hours) Vital Signs Temp Pulse Resp BP Pulse Ox O2 Del Method 02/25/24 03:45 36.7 C 99 H 20 149/88 H 97 Room Air 02/25/24 01:20 160/95 H 02/25/24 00:15 150/90 H 02/24/24 23:13 36.8 C 95 H 18 150/92 H 98 Room Air 02/24/24 19:37 36.8 C 99 H 18 142/89 H 96 Room Air Resident Activity Tracking Resident Involvement: Resident Care Provided Care Provided: Adult Hospital Medicine
[2024-02-25] MEDS: LABETALOL HCL 200 MG TAB PO SCH (08:22)
--- NOTE | 2024-02-27 14:07 | Discharge Summary ---
Date of Service Date of admission: 02/21/24 Date of discharge: February 25, 2024 Admission HPI Per Admitting Provider 28yo @ 37 10/30, was at office today for routine visit, elevated BPs at office. Was directed to L&D for further eval/workup. No symptoms - no headache, vision changes, RUQ pain. Upon further evaluation, found to have preeclampsia with severe features and began induction of labor, use of iv bp meds and magnesium seizure prophylaxis, pitocin. Discharge Data Procedures Performed Operation Date: 02/22/24 21:35 Actual Procedures p Primary Low Transverse Section in LD, live female child born at 2236 - Yessi Urias MD, [facility] Course (1) care following delivery: Patient ultimately dilated to complete and began 2nd stage and unfortunately there was failure to descend of cephalic and she was recommended to proceed with c/s. The patient underwent the above stated procedure without incident and her postoperative course and recovery was uncomplicated. She did require magnesium for approximately 24hrs and also started on oral anti-hypertensives. On her postoperative day #3 she was tolerating a regular diet, voiding spontaneously, ambulating without problem and was using oral meds for adequate pain control. Her postoperative hemoglobin was 9.7. She was given written and verbal discharge instructions and told to followup in office at 6wks. She was given appropriate pain medicine prescriptions and medication was sent for her blood pressure management. Coding Level of Care Code None Diagnoses care following delivery Z39.2
== END 2024-02-25 15:30 | disposition home or self-care (01) | DRG 787 ==
LOC: OPB 17:09 → 4S1 17:10 → 4E2 02-24 00:27
DX: E66.9 Obesity, unspecified; Z3A.37 37 weeks gestation of pregnancy; Z79.82 Long term (current) use of aspirin; O14.14 Severe pre-eclampsia complicating childbirth; O64.8XX0 Obstructed labor due to other malposition and malpresentation, not applicable or unspecified; Z37.0 Single live birth; Z68.41 Body mass index [BMI] 40.0-44.9, adult; O99.213 Obesity complicating pregnancy, third trimester

== ENCOUNTER 2024-02-27 17:03 | Inpatient (IN) ==
[2024-02-27 17:55] LABS: Hematocrit (blood only) 31.8 % (37.0-47.0); Hemoglobin 9.9 g/dl (12.0-16.0); Mean Corpuscular Hgb Conc 31.1 g/dL (32.0-36.0); Mean Corpuscular Volume 70.7 fL (80.0-100.0); Mean Platelet Volume 9.4 fL (9.4-12.4); Platelet Count 328 K/uL (130-400); RDW Coefficient of Variation 14.5 % (11.5-14.5); RDW Standard Deviation 36.2 fL (36.4-46.3); White Blood Count 7.28 K/ul (4.8-10.8)
[2024-02-27] MEDS ORDERED: MAG SULFATE 4GM BOLUS FROM BAG IV ONE (18:04)
[2024-02-27 18:13] LABS: Alanine Aminotransferase 11 U/L (7-52); Albumin Globulin Ratio 1.1 (0.9-2); Albumin Level 3.3 gm/dl (3.4-5.0); Alkaline Phosphatase 94 U/L (34-104); Anion Gap 7 (3-11); Aspartate Aminotransferase 11 U/L (13-39); BUN Creatinine Ratio 18.4 (10-20); Bilirubin,Total 0.4 mg/dl (0.2-1.0); Blood Urea Nitrogen 9 mg/dl (6-23); Calcium 9.3 mg/dl (8.6-10.3); Carbon Dioxide 28 mmol/L (21-32); Chloride 104 mmol/L (98-107); Est GFR (African American) > 150.0 ml/min; Est GFR (Non-African American) 134.5 ml/min; Globulin 2.9 gm/dl (2.5-4.0); Glucose 82 mg/dl (70-99(Fasting)); Potassium 4.4 mmol/L (3.5-5.1); Sodium 139 mmol/L (136-145); Total Protein 6.2 gm/dl (6.0-8.3)
--- NOTE | 2024-02-27 18:15 | History & Physical Report ---
Date of Service February 27, 2024 Assessment & Plan (1) care following delivery: (2) Pre-eclampsia, : Plan admit for mag sulfate prophylaxis. Plan to treat bp with iv labetolol at this point. Labs are wnl. Patient agreeable to admission and understands will likely be here for at least 2 days so we can make sure her blood pressure is controlled. Breast feeding. Will continue to monitor closely. History of Present Illness Chief Complaint: elevated blood pressures Primary Care Provider: NO PCP Patient is a 28yowf who delivered by c/s a few days ago. dx was FTD/cpd. Was admitted and induced with pet with severe features (blood pressures) and had 24 hours of pp mag. Was d/c home on labetolol 400mg tid. She has been monitoring pressures at home over the weekend and today. Notes she feels fuzzy and a bit dizzy at times since d/c, but denies lewis/vision change/n/v/increase swelling. She notes her bps at home have been 150-160s/100s since d/c. AT the hospital pressures on d/c were in the 140-150s/90s. While under obs, first pressure was 178/102--sitting comfortably in a chair for five minutes. Repeat 15 min later was 184/106. She notes last dose of labetolol was around 11 and due at 5. Given the severe blood pressures, they need to be treated. Minimally with iv labetolol and then transition to different oral meds or with mag and then that. Labs are all wnl. Given I cannot differentiate between ghtn that just needs blood pressure med adjustment and severe pet which puts her at risk for seizures, I want to cautiously treat for presumed pp pet. She is agreeable to another 24 hours of Mag and all that comes with it. Allergies Allergy/AdvReac Type Severity Reaction Status Date / Time No Known Allergies Allergy Verified 02/21/24 15:27 Home Medications Medication Instructions Recorded Confirmed Type elderberry fruit PO 11/07/23 02/21/24 History 21-iron fu-folic acid 1 tab PO 11/07/23 02/21/24 History [ Complete] ibuprofen 600 mg tablet 600 mg PO Q6H PRN pain #60 tabs 02/24/24 Rx oxycodone-acetaminophen 5 mg-325 1 tab PO Q6H PRN pain #14 tabs 02/24/24 Rx mg tablet (Percocet) labetalol 200 mg tablet 400 mg (2 x 200 mg) PO Q8H #90 tabs 02/25/24 Rx labetalol 200 mg tablet 400 mg (2 x 200 mg) PO Q8H #90 tabs 02/25/24 Rx Patient History Medical History (Updated 02/27/24 @ 18:22 by Pastora Mcgovern MD, FACOG) History of PCOS Hypertension Varicella vaccination Surgical History (Updated 11/07/23 @ 13:28 by Sonya Shannon) S/P tonsillectomy and adenoidectomy Family History (Updated 11/07/23 @ 13:14 by Sonya Shannon) Aunt Breast cancer Grandmother (Maternal) Ovarian cancer Denies family history of Colorectal cancer Social History (Updated 11/07/23 @ 13:16 by Sonya Shannon) Smoking Status: Never smoker Do You Dip or Chew Tobacco: No; Hx Alcohol Use: No Hx Substance Use: No Preferred Language: Georgian Gis Mapping Technician Required: No Beliefs That Will Affect Care: None marital status: Single marital status details: marko Unger (24) [phone] Current Living Situation: Significant Other Current Living Situation Comment: lives with marko, 2 children, dog, cat-fob changing litter current occupational status: employed and student current occupation: [employer] & student Feels Safe at Home: Yes Assistive Devices: None OB History , x 3, recent c/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 noncontributory Physical Exam Constitutional: WD/WN, vitals as above Respiratory: normal respiratory effort, lungs clear to auscultation Cardiovascular: Rate/Rhythm: regular rate and regular rhythm Extremities: + edema (tr); no calf tenderness Gastrointestinal (Abdomen): soft, nt, nd, no ruq tenderness Neurologic: patellar DTR's 2+ bilat, sensation intact Psychiatric: A+Ox3, euthymic affect Results & Data Vital Signs (Past 12 Hours) Vital Signs Pulse BP 02/27/24 17:58 90 184/86 H 02/27/24 17:57 89 189/106 H 02/27/24 17:15 90 171/81 H 02/27/24 17:13 88 178/102 H Coding Level of Care Code None Diagnoses care following delivery Z39.2 Pre-eclampsia, O14.95
[2024-02-27] MEDS: LABETALOL HCL IV 5 MG/ML 20ML IV STA ×2 (18:24→20:14)
[2024-02-27] MEDS: LACTATED RINGER'S 1,000 ML IV SCH (18:37)
[2024-02-27] MEDS: MAG SULFATE 6GM BOLUS FROM BAG IV ONE (18:38)
[2024-02-27] MEDS: LIDOCAINE 2% JELLY 5 ML TUBE EXT ONE (18:46)
[2024-02-27] MEDS: MAGNESIUM SULFATE / WTR 40 GM/1,000 ML BAG IV SCH (19:09)
[2024-02-27] MEDS: MAGNESIUM SULFATE 40GM / WTR 1,000 ML BAG IV ONE (19:38)
[2024-02-27] MEDS: LABETALOL HCL 200 MG TAB PO ONE (19:38)
[2024-02-27] MEDS: NIFEdipine EXTENDED REL 30 MG TABCR PO STA (22:29)
[2024-02-28] MEDS: ACETAMINOPHEN 500 MG TAB PO ONE (00:07)
--- NOTE | 2024-02-28 08:39 | Obstetrical Progress Note ---
Date of Service February 28, 2024 Assessment & Plan (1) Pre-eclampsia, : Plan Continue Mag for 24 hours. Excellent uop and bps are finally responding. Will continue po procardia. Will allow regular diet as responding to Mag. Admission and Anticipated Discharge Date Admission Date: February 27, 2024 Subjective Patient resting in bed. did get some sleep last night. Partner and baby in the room. Bottle feeding. Patient had lewis last night that resolved with tylenol. Has a mild lewis this am. No other s/s of pet at this time. Pressures have final ly started to come down. Two doses of labetolol iv and procardia po last night. no n/v. She is hungry. Physical Exam Constitutional: WD/WN, vitals as above Neck: trachea midline, no thyromegaly Respiratory: normal respiratory effort, lungs clear to auscultation Cardiovascular: RRR, no murmur, no edema Gastrointestinal (Abdomen): soft, nt, nd ff well below u Neurologic: patellar DTR's 2+ bilat, sensation intact Psychiatric: A+Ox3, euthymic affect Results & Data Vital Signs (Past 12 Hours) Vital Signs Temp Pulse Resp BP Pulse Ox 02/28/24 08:32 104 H 96 02/28/24 08:27 102 H 95 02/28/24 08:22 106 H 98 02/28/24 08:21 104 H 94 02/28/24 08:17 104 H 98 02/28/24 08:15 18 02/28/24 08:14 109 H 93 02/28/24 08:12 108 H 95 02/28/24 08:11 106 H 129/66 02/28/24 08:07 108 H 97 02/28/24 08:04 107 H 93 02/28/24 08:02 108 H 98 02/28/24 07:57 112 H 98 02/28/24 07:52 102 H 96 02/28/24 07:49 100 H 94 02/28/24 07:47 99 H 98 02/28/24 07:42 90 92 02/28/24 07:37 90 92 02/28/24 07:32 91 H 92 02/28/24 07:27 94 H 92 02/28/24 07:22 90 93 02/28/24 07:17 92 H 92 02/28/24 07:13 94 H 94 02/28/24 07:12 97 H 96 02/28/24 07:08 91 H 132/71 02/28/24 07:07 94 H 98 02/28/24 07:05 86 94 02/28/24 07:02 88 94 02/28/24 07:00 36.5 C 18 02/28/24 07:00 18 02/28/24 06:57 79 93 02/28/24 06:54 84 93 02/28/24 06:52 87 94 02/28/24 06:47 82 93 02/28/24 06:42 93 02/28/24 06:42 88 02/28/24 06:42 87 94 02/28/24 06:37 85 93 02/28/24 06:32 96 02/28/24 06:32 101 H 02/28/24 06:32 95 H 93 02/28/24 06:27 90 93 02/28/24 06:22 87 92 02/28/24 06:21 89 93 02/28/24 06:17 88 92 02/28/24 06:13 88 144/78 H 02/28/24 06:12 93 02/28/24 06:12 89 02/28/24 06:12 91 H 02/28/24 06:07 88 92 02/28/24 06:02 86 93 02/28/24 06:00 18 02/28/24 05:57 93 H 94 02/28/24 05:54 89 94 02/28/24 05:52 88 90 02/28/24 05:47 91 H 89 L 02/28/24 05:42 90 90 02/28/24 05:37 93 H 90 02/28/24 05:32 90 91 02/28/24 05:29 90 92 02/28/24 05:27 91 H 91 02/28/24 05:23 99 H 94 02/28/24 05:22 103 H 95 02/28/24 05:19 96 H 134/73 02/28/24 05:17 88 92 02/28/24 05:12 89 92 02/28/24 05:07 91 H 93 02/28/24 05:02 91 H 94 02/28/24 05:00 18 02/28/24 05:00 101 H 91 02/28/24 04:57 94 H 92 02/28/24 04:53 94 H 93 02/28/24 04:52 105 H 97 02/28/24 04:47 97 H 96 02/28/24 04:42 110 H 95 02/28/24 04:37 93 H 94 02/28/24 04:32 94 H 92 02/28/24 04:27 94 H 93 02/28/24 04:25 95 H 94 02/28/24 04:22 103 H 98 02/28/24 04:17 106 H 97 02/28/24 04:12 106 H 97 02/28/24 04:07 108 H 94 02/28/24 04:02 94 02/28/24 04:02 98 H 02/28/24 04:02 96 H 94 02/28/24 04:01 18 02/28/24 03:59 91 H 141/82 H 02/28/24 03:57 95 H 94 02/28/24 03:56 83 94 02/28/24 03:52 87 93 02/28/24 03:49 84 93 02/28/24 03:47 79 94 02/28/24 03:43 82 94 02/28/24 03:42 80 95 02/28/24 03:37 80 93 02/28/24 03:34 79 94 02/28/24 03:32 83 95 02/28/24 03:29 83 93 02/28/24 03:27 83 94 02/28/24 03:22 86 93 02/28/24 03:20 87 94 02/28/24 03:19 87 151/73 H 02/28/24 03:17 97 H 97 02/28/24 03:15 84 91 02/28/24 03:12 86 94 02/28/24 03:07 86 94 02/28/24 03:02 86 94 02/28/24 03:01 85 94 02/28/24 03:00 18 02/28/24 02:57 84 94 02/28/24 02:53 86 91 02/28/24 02:52 85 93 02/28/24 02:47 88 93 02/28/24 02:42 85 93 02/28/24 02:37 87 91 02/28/24 02:34 99 H 90 02/28/24 02:32 84 93 02/28/24 02:27 86 93 02/28/24 02:24 93 H 156/86 H 02/28/24 02:22 89 94 02/28/24 02:21 79 92 02/28/24 02:17 87 93 02/28/24 02:12 86 93 02/28/24 02:07 87 93 02/28/24 02:02 88 93 02/28/24 02:00 18 02/28/24 01:57 87 93 02/28/24 01:52 88 93 02/28/24 01:47 89 91 02/28/24 01:46 95 H 94 02/28/24 01:42 89 93 02/28/24 01:37 90 93 02/28/24 01:32 101 H 97 02/28/24 01:27 96 H 96 02/28/24 01:24 96 H 155/77 H 02/28/24 01:22 97 H 96 02/28/24 01:21 96 H 185/86 H 02/28/24 01:20 93 H 92 02/28/24 01:17 96 H 96 02/28/24 01:14 88 92 02/28/24 01:12 106 H 97 02/28/24 01:07 100 H 98 02/28/24 01:02 106 H 95 02/28/24 01:00 18 02/28/24 00:57 92 02/28/24 00:57 99 H 02/28/24 00:57 94 H 91 02/28/24 00:52 87 93 02/28/24 00:50 85 93 02/28/24 00:47 86 94 02/28/24 00:44 101 H 92 02/28/24 00:42 93 H 94 02/28/24 00:39 96 H 94 02/28/24 00:37 96 H 97 02/28/24 00:32 97 H 94 02/28/24 00:31 99 H 93 02/28/24 00:27 93 H 92 02/28/24 00:26 88 94 02/28/24 00:22 88 93 02/28/24 00:21 99 H 143/81 H 02/28/24 00:20 91 H 93 02/28/24 00:17 89 95 02/28/24 00:14 91 H 94 02/28/24 00:12 92 H 97 02/28/24 00:07 94 H 99 02/28/24 00:06 84 93 02/28/24 00:02 87 99 02/28/24 00:01 90 92 02/28/24 00:00 36.5 C 02/28/24 00:00 18 02/27/24 23:57 89 156/77 H 02/27/24 23:57 92 H 96 02/27/24 23:54 89 94 02/27/24 23:52 96 H 96 02/27/24 23:48 95 H 94 02/27/24 23:47 93 H 96 02/27/24 23:43 91 H 94 02/27/24 23:42 94 H 96 02/27/24 23:37 92 H 94 02/27/24 23:36 95 H 94 02/27/24 23:32 97 H 97 02/27/24 23:27 93 H 94 02/27/24 23:22 94 02/27/24 23:22 84 02/27/24 23:22 86 94 02/27/24 23:20 99 H 156/77 H 02/27/24 23:17 91 H 93 02/27/24 23:12 92 H 92 02/27/24 23:07 92 H 93 02/27/24 23:02 92 H 92 02/27/24 23:00 18 02/27/24 22:57 92 H 93 02/27/24 22:52 90 94 02/27/24 22:50 89 151/77 H 02/27/24 22:47 87 93 02/27/24 22:42 90 94 02/27/24 22:41 88 93 02/27/24 22:37 90 94 02/27/24 22:36 91 H 93 02/27/24 22:32 91 H 95 02/27/24 22:31 94 H 94 02/27/24 22:28 92 H 171/83 H 02/27/24 22:27 92 H 95 02/27/24 22:25 99 H 92 02/27/24 22:22 94 H 97 02/27/24 22:19 93 H 171/83 H 94 02/27/24 22:17 96 H 95 02/27/24 22:12 90 98 02/27/24 22:07 92 H 95 02/27/24 22:02 93 H 97 02/27/24 21:59 90 93 05/06/24 21:57 94 H 97 02/27/24 21:52 89 94 02/27/24 21:49 93 H 157/81 H 02/27/24 21:47 95 H 98 02/27/24 21:42 91 H 94 02/27/24 21:40 92 H 94 02/27/24 21:37 93 H 98 02/27/24 21:34 96 H 94 02/27/24 21:32 102 H 96 02/27/24 21:27 98 02/27/24 21:27 94 H 02/27/24 21:27 94 H 94 02/27/24 21:22 94 H 95 02/27/24 21:20 95 H 149/77 H 02/27/24 21:17 95 H 96 02/27/24 21:12 88 96 02/27/24 21:07 91 H 97 02/27/24 21:04 90 94 02/27/24 21:02 96 H 97 02/27/24 21:00 18 02/27/24 20:59 91 H 94 02/27/24 20:57 93 H 95 02/27/24 20:54 91 H 94 02/27/24 20:52 89 93 02/27/24 20:49 93 H 94 02/27/24 20:47 88 96 02/27/24 20:46 84 159/73 H 02/27/24 20:42 91 H 96 02/27/24 20:41 94 H 156/74 H 02/27/24 20:39 94 H 94 PG Care Time/CCT Total # of Minutes Spent Total Time Spent with Patient: Total time spent is greater than 50% in coordination of care (as documented) at patient's floor/unit and/or counseling patient: Coding Level of Care Code 35264 SUB INP/OBS CARE 11/17MIN Diagnoses Pre-eclampsia, O14.95
[2024-02-28] MEDS: ACETAMINOPHEN 325 MG TAB PO PRN (09:44)
[2024-02-28] MEDS: IBUPROFEN 600 MG TAB PO SCH (11:43)
[2024-02-28] MEDS: NIFEdipine EXTENDED REL 30 MG TABCR PO SCH (21:02)
[2024-02-28] MEDS: LABETALOL HCL 200 MG TAB PO SCH (23:55)
--- NOTE | 2024-02-29 06:18 | Obstetrical Progress Note ---
Date of Service <Nancy Kraft DO - Last Filed: 02/29/24 06:21> February 29, 2024 Assessment & Plan <Nancy Kraft DO - Last Filed: 02/29/24 06:21> (1) Pre-eclampsia, : (2) care following delivery: Plan S/p 24 hours mag last night and doing well. BPs controlled on nicardipine 30 mg qam. Continue dose at home. <Gita Maldonado MD - Last Filed: 02/29/24 06:53> (1) Pre-eclampsia, : S/P Magnesium x24 hr last evening. Procardia 30xl daily. BP increased after mag stopped, so added labetalol 200mg PO BID last night. Currently 139/70 and asymptomatic. Per counseling to patient upon admission, anticipate staying through day today to trend BP and confirm outpatient med regimen is adequate. (2) care following delivery: Subjective <Nancy Kraft DO - Last Filed: 02/29/24 06:21> Pt is a 28 y/o female who presents for severe preeclampsia following c- section delivery on 02/21. Today she states she is feeling okay. No nausea or vomiting. No chest pain or SOB. No questions or complaints at this point in time. Overall feeling well. Constitutional: no fever, no chills or no sweats Respiratory: no dyspnea Cardiovascular: no chest pain or no palpitations Breast: no breast pain Genitourinary (female): no dysuria Neurologic: no headache(s) no changes in vision, no headaches Physical Exam <Nancy Kraft DO - Last Filed: 02/29/24 06:21> General: Alert, oriented. No acute distress. Cardiac: Regular rate and rhythm, no murmurs, rubs, or gallops. Respiratory: Clear to auscultation bilaterally, no wheezes/rales/rhonchi. No increased work of breathing. Symmetrical chest rise. No respiratory distress. Abdomen: Soft, nontender, nondistended. Bowel sounds present. Uterus: Uterine fundus firm, palpable below the umbilicus. Lower extremities: No lower extremity edema or swelling. No deep calf pain. Results & Data <Nancy Kraft DO - Last Filed: 02/29/24 06:21> Vital Signs (Past 12 Hours) Vital Signs Temp Pulse Resp BP 02/29/24 04:30 36.8 C 18 02/29/24 04:30 18 02/29/24 04:10 76 139/70 02/28/24 23:53 93 H 134/63 02/28/24 21:41 93 H 145/83 H 02/28/24 21:01 98 H 176/107 H 02/28/24 21:00 97 H 172/105 H 02/28/24 19:30 36.9 C 18 02/28/24 19:30 18 02/28/24 19:18 100 H 149/83 H 02/28/24 18:45 36.8 C 18 02/28/24 18:45 18 02/28/24 18:43 93 H 137/80 Resident Activity Tracking <Nancy Kraft, DO - Last Filed: 02/29/24 06:21> Resident Involvement: Resident Care Provided Care Provided: OB Delivery
[2024-02-29] MEDS ORDERED: Nursing to Pharmacy Communication SCH (08:15)
[2024-02-29] MEDS: DOCUSATE SODIUM 100 MG CAP PO SCH (09:05)
[2024-02-29] MEDS: LABETALOL HCL 200 MG TAB PO ONE (17:00)
[2024-02-29] MEDS: LABETALOL HCL 200 MG TAB PO SCH (21:15)
[2024-02-29] MEDS: IBUPROFEN 600 MG TAB PO PRN (22:21)
--- NOTE | 2024-03-01 05:55 | Obstetrical Progress Note ---
Date of Service <Nancy Pavel Kraft DO - Last Filed: 03/01/24 06:03> March 01, 2024 Assessment & Plan <Nancy Zhao DO Swapnil - Last Filed: 03/01/24 06:03> (1) Pre-eclampsia, : (2) care following delivery: Plan S/p 24 hours mag 02/27. BPs noted to have increased yesterday evening, max 180/109. Now on nifedipine and labetolol BID dosing. Will monitor pressures through this morning. <Micaela Boles MD, FACOG - Last Filed: 03/01/24 08:40> (1) Pre-eclampsia, : (2) care following delivery: Subjective <Nancy Pavel Kraft DO - Last Filed: 03/01/24 06:03> Pt is a 28 y/o female who presents for severe preeclampsia following c- section delivery on 02/21. Today, she states she is feeling pretty good. She states she has no headache, vision changes, nausea, vomiting, or chest pain or shortness of breath. No questions or complaints at this time. She notes that her BP was high yesterday evening but has come down since then. Overall feeling well this morning. Constitutional: no fever, no chills or no sweats Respiratory: no dyspnea Cardiovascular: no chest pain or no palpitations Genitourinary (female): no dysuria Neurologic: no headache(s) Physical Exam <Nancy Pavel Kraft DO - Last Filed: 03/01/24 06:03> General: Alert, oriented. No acute distress. Cardiac: Regular rate and rhythm, no murmurs, rubs, or gallops. Respiratory: Clear to auscultation bilaterally, no wheezes/rales/rhonchi. No increased work of breathing. Symmetrical chest rise. No respiratory distress. Abdomen: Soft, nontender, nondistended. Bowel sounds present. Uterus: Uterine fundus firm, palpable below the umbilicus. Lower extremities: No lower extremity edema or swelling. No deep calf pain. Results & Data <Nancy Pavel Kraft DO - Last Filed: 03/01/24 06:03> Vital Signs (Past 12 Hours) Vital Signs Temp Pulse Resp BP Pulse Ox O2 Del Method 03/01/24 03:15 36.8 C 78 20 122/78 99 Room Air 02/29/24 23:47 36.8 C 82 20 139/100 99 Room Air 02/29/24 22:30 84 153/98 H 02/29/24 21:14 82 151/98 H 02/29/24 19:30 Room Air 02/29/24 18:56 36.8 C 91 H 18 144/86 H 98 Room Air 02/29/24 18:10 141/91 H Supervising Physician <Micaela Boles MD, FACOG - Last Filed: 03/01/24 08:40> Co-Signing Physician Notes Resident Physician Supervision Note: I interviewed and examined the patient. Discussed with Dr. Kraft and agree with findings and plan as documented in the note. Any exceptions or clarifications are listed here: [None] Documented By: Micaela Boles MD, FACOG Resident Activity Tracking <Nancy Kraft DO - Last Filed: 03/01/24 06:03> Resident Involvement: Resident Care Provided Care Provided: OB Delivery
[2024-03-01] MEDS: NIFEdipine EXTENDED REL 30 MG TABCR PO SCH (08:12)
--- NOTE | 2024-03-02 13:38 | Discharge Summary ---
Date of Service March 02, 2024 Admission HPI Per Admitting Provider Patient is a 28yowf who delivered by c/s a few days ago. dx was FTD/cpd. Was admitted and induced with pet with severe features (blood pressures) and had 24 hours of pp mag. Was d/c home on labetolol 400mg tid. She has been monitoring pressures at home over the weekend and today. Notes she feels fuzzy and a bit dizzy at times since d/c, but denies lewis/vision change/n/v/increase swelling. She notes her bps at home have been 150-160s/100s since d/c. AT the hospital pressures on d/c were in the 140-150s/90s. While under obs, first pressure was 178/102--sitting comfortably in a chair for five minutes. Repeat 15 min later was 184/106. She notes last dose of labetolol was around 11 and due at 5. Given the severe blood pressures, they need to be treated. Minimally with iv labetolol and then transition to different oral meds or with mag and then that. Labs are all wnl. Given I cannot differentiate between ghtn that just needs blood pressure med adjustment and severe pet which puts her at risk for seizures, I want to cautiously treat for presumed pp pet. She is agreeable to another 24 hours of Mag and all that comes with it. Hospital Course (1) Pre-eclampsia, : Plan Patient was admitted and underwent 24 hours of Mag sulfate prophylaxis. She tolerated well. Excellent uop. Required two doses or IV labetolol and procardia po. When the Mag was d/c, she was eventually transitioned to oral labetolol and procardia. Her labs were always wnl. She was admitted on 02/26 and once her blood pressures were better controlled, she was d/c on 03/01. Will have short f/u in the office. s/s of preeclampsia were reviewed with the patient. Coding Level of Care Code None Diagnoses Pre-eclampsia, O14.95
== END 2024-03-01 18:05 | disposition home or self-care (01) | DRG 776 ==
LOC: OPB 17:03 → 4S1 17:04 → 4E1 02-29 14:56
DX: Z79.899 Other long term (current) drug therapy; O14.15 Severe pre-eclampsia, complicating the puerperium